=== PATIENT | female | born 1965 | race Caucasian/White ===

== ENCOUNTER 2018-10-31 12:09 | Emergency (ER) | payer MEDICAID ==
[~2018-10-31] VITALS: Ht 160 cm; Wt 90.0 kg
[~2018-10-31 12:09] MED LIST: ALBU18HF2 INH; LEVA15HF4 INH; LISI-600 PO; TOPI100T18 PO; TOPI200T PO
[2018-10-31] MEDS ORDERED: ipratropium/albuterol 3ml nebule NEB ONE (12:35)
[2018-10-31] MEDS ORDERED: methylPREDNISolone sod succ 125mg/2ml vial IV ONE (12:35)
[2018-10-31 12:42] LABS: BASOPHILS % (AUTO) 0.3 % (0-1); EOSINOPHILS # (AUTO) 0.4 X10'3 (0-0.9); EOSINOPHILS % (AUTO) 3.7 % (0-6); HEMATOCRIT 40.2 % (35.0-45.0); HEMOGLOBIN 13.7 g/dl (12.0-16.0); LYMPHOCYTES # (AUTO) 1.5 X10'3 (1.1-4.8); LYMPHOCYTES % (AUTO) 13.2 % (21-51); MEAN CORPUSCULAR HEMOGLOBIN 32.6 PG (27.0-31.0); MEAN CORPUSCULAR HGB CONC 34.1 % (33.0-36.5); MEAN CORPUSCULAR VOLUME 95.8 FL (78-98); MEAN PLATELET VOLUME 8.5 FL (7.4-10.4); MONOCYTES # (AUTO) 0.6 X10'3 (0-0.9); NEUTROPHILS % (AUTO) 77.8 % (42-75); PLATELET COUNT 200 X10'3 (140-440); RED CELL DISTRIBUTION WIDTH 13.4 % (11.5-14.5); WHITE BLOOD COUNT 11.6 X10'3 (4.5-11.0)
[2018-10-31 12:57] LABS: ALANINE AMINOTRANSFERASE 18 U/L (12-78); ALBUMIN/GLOBULIN RATIO 0.9 (1.1-1.5); ALKALINE PHOSPHATASE 78 IU/L (46-116); ANION GAP 12 (8-16); ASPARTATE AMINO TRANSFERASE 8 U/L (10-37); BILIRUBIN,TOTAL 0.5 MG/DL (0.1-1.0); BLOOD UREA NITROGEN 16 MG/DL (7-18); CALCIUM 9.3 MG/DL (8.5-10.1); CHLORIDE 105 MMOL/L (99-107); CREATININE 0.84 MG/DL (0.40-0.90); GLUCOSE 119 MG/DL (70-104); PARTIAL THROMBOPLASTIN TIME 28 SECONDS (22-32); POTASSIUM 4.5 MMOL/L (3.5-5.1); PROTHROMBIN TIME 10.3 SECONDS (9.0-12.0); SODIUM 138 MMOL/L (135-145); TOTAL CARBON DIOXIDE 21.5 MMOL/L (24-32); TOTAL PROTEIN 8.4 G/DL (6.4-8.2); eGFR 71 ML/MIN
[2018-10-31] MEDS ORDERED: LEVO750T21 PO (13:36)
[2018-10-31] MEDS ORDERED: METH4TAB81 PO (13:36)
[2018-10-31] MEDS ORDERED: lisinopril 10 MG tablet PO ONE (13:40)
[2018-10-31 13:55] VITALS: BP 157/98
== END 2018-10-31 13:52 | disposition home or self-care (01) ==
LOC: ER 12:10
DX: J44.1 Chronic obstructive pulmonary disease with (acute) exacerbation (principal); F17.218 Nicotine dependence, cigarettes, with other nicotine-induced disorders; I10 Essential (primary) hypertension; I25.2 Old myocardial infarction; Z86.19 Personal history of other infectious and parasitic diseases; Z86.69 Personal history of other diseases of the nervous system and sense organs; G89.29 Other chronic pain; Z98.890 Other specified postprocedural states; Z88.0 Allergy status to penicillin; Z88.5 Allergy status to narcotic agent; Z79.899 Other long term (current) drug therapy
CPT/HCPCS: 36415; 71045; 80053; 84484; 85025; 85610; 85730; 87040; 93005; 94640; 94760; 96374; 99284; J2930

== ENCOUNTER 2022-03-20 08:04 | Inpatient (IN) | payer MEDICAID ==
[~2022-03-20] VITALS: Ht 160 cm; Wt 70.9 kg
[~2022-03-20 08:04] MED LIST changes: -LISI-600 PO; +LISI20TA28 PO; +METH4TAB81 PO; +TOP100T PO; -TOPI100T18 PO
[2022-03-20] MEDS ORDERED: metoclopramide 5 mg/ml inj IV ONE (08:15)
[2022-03-20] MEDS ORDERED: diphenhydrAMINE 50 mg/ml inj IV ONE (08:15)
[2022-03-20] MEDS ORDERED: normal saline 1000ML IV soln IVB ONE ×2 (08:15)
[2022-03-20] MEDS ORDERED: morphine 4 MG/ML inj SYRINge IV ONE (08:20)
[2022-03-20] MEDS ORDERED: methylPREDNISolone sod succ 125mg/2ml vial IV ONE (08:20)
[2022-03-20 08:43] LABS: BASOPHILS # (AUTO) 0.1 X10'3 (0-0.2); BASOPHILS % (AUTO) 1.1 % (0-1); EOSINOPHILS # (AUTO) 0.2 X10'3 (0-0.9); EOSINOPHILS % (AUTO) 1.9 % (0-6); HEMOGLOBIN 11.9 g/dl (12.0-16.0); LYMPHOCYTES # (AUTO) 0.8 X10'3 (1.1-4.8); LYMPHOCYTES % (AUTO) 9.7 % (21-51); MEAN CORPUSCULAR HEMOGLOBIN 29.3 PG (27.0-31.0); MEAN CORPUSCULAR VOLUME 88.7 FL (78-98); MEAN PLATELET VOLUME 8.6 FL (7.4-10.4); MONOCYTES # (AUTO) 0.7 X10'3 (0-0.9); MONOCYTES % (AUTO) 8.6 % (2-12); NEUTROPHILS # (AUTO) 6.2 X10'3 (1.8-7.7); NEUTROPHILS % (AUTO) 78.7 % (42-75); PLATELET COUNT 257 X10'3 (140-440); RED BLOOD COUNT 4.06 X10'6 (4.20-5.60); RED CELL DISTRIBUTION WIDTH 18.8 % (11.5-14.5); WHITE BLOOD COUNT 7.9 X10'3 (4.5-11.0)
[2022-03-20 08:50] LABS: ALANINE AMINOTRANSFERASE 31 U/L (12-78); ALBUMIN 2.7 G/DL (3.4-5.0); ALBUMIN/GLOBULIN RATIO 0.6 (1.1-1.5); ALKALINE PHOSPHATASE 532 IU/L (46-116); ANION GAP 9 (8-16); ASPARTATE AMINO TRANSFERASE 76 U/L (10-37); BILIRUBIN,TOTAL 0.9 MG/DL (0.1-1.0); BLOOD UREA NITROGEN 11 MG/DL (7-18); BUN/CREATININE RATIO 13.1 (6.6-38.0); CALCIUM 8.4 MG/DL (8.5-10.1); CHLORIDE 107 MMOL/L (99-107); CREATININE 0.84 MG/DL (0.40-0.90); GLUCOSE 147 MG/DL (70-104); LIPASE 140 U/L (73-393); POTASSIUM 3.5 MMOL/L (3.5-5.1); SODIUM 142 MMOL/L (135-145); TOTAL CARBON DIOXIDE 26.3 MMOL/L (24-32); TOTAL PROTEIN 7.2 G/DL (6.4-8.2); eGFR 70 ML/MIN
[2022-03-20 09:16] LABS: CLARITY,URINE SLIGHTLY CLOUDY (Clear); COLOR,URINE YELLOW (Yellow); GLUCOSE, URINE NEGATIVE (Neg); KETONES,URINE NEGATIVE (Neg); LEUKOCYTE ESTERASE ,URINE NEGATIVE (Neg); NITRITES, URINE NEGATIVE (Neg); OCCULT BLOOD,URINE NEGATIVE (Neg); PROTEIN,URINE TRACE mg/dl (Neg)
[2022-03-20 09:22] LABS: URINE HCG NEGATIVE (NEG)
[2022-03-20 09:24] LABS: UA COLLECTION TYPE STRAIGHT CATH
[2022-03-20 09:25] LABS: MUCUS STRANDS MANY /LPF (Neg); SQUAMOUS EPITHELIAL CELL,UR MANY /LPF (FEW)
[2022-03-20 09:26] LABS: BACTERIA,URINE FEW /HPF (Neg)
[2022-03-20 09:27] LABS: TRANSITIONAL EPI CELLS,URINE FEW /HPF; WBC,URINE 0-4 /HPF (0-4)
--- NOTE | 2022-03-20 10:04 | NUR ---
US TECH AT BEDSIDE AT THIS TIME. PAT GIVEN ANOTHER PILLOW PER REQUEST FOR COMFORT.
[2022-03-20] MEDS ORDERED: levoFLOXACIN-Levaquin 500mg/D5 100 ML IV ONE (11:00)
[2022-03-20] MEDS ORDERED: HYDROcodone/acetaminophen 5mg/325mg tablet PO PRN (12:15)
[2022-03-20] MEDS ORDERED: magnesium hydroxide 30ml (MOM) UD suspension PO PRN (12:15)
[2022-03-20] MEDS ORDERED: magnesium 4gm in 100ml NS 100 ML IV PRN (12:15)
[2022-03-20] MEDS ORDERED: POTASSIUM BICARB 20meq eff tab 20 MEQ TABLET.EFF PO PRN ×2 (12:15)
[2022-03-20] MEDS ORDERED: potassium CL 10mEq/100ml bag 100 ML IV PRN (12:15)
[2022-03-20] MEDS ORDERED: magnesium 2GM in 50ml NS 50 ML IV PRN (12:15)
[2022-03-20] MEDS ORDERED: acetaminophen 325mg tablet PO PRN ×2 (12:15)
[2022-03-20] MEDS ORDERED: PERFLUTREN PROTEIN-A MICROSPHR (Optison) 0.22 MG/ML 3ML VIAL IV ONE (12:15)
[2022-03-20] MEDS ORDERED: ipratropium/albuterol 3ml nebule NEB PRN (12:15)
[2022-03-20] MEDS ORDERED: ondansetron 4mg rapidly disintigrating tab PO PRN (12:15)
[2022-03-20] MEDS ORDERED: magnesium Cl slow-release 64mg tablet PO PRN (12:15)
[2022-03-20] MEDS ORDERED: mag hydrox/Alum hydrox/simeth 30ml oral suspension PO PRN (12:15)
[2022-03-20] MEDS: cefTRIAXone 1g/NS 100ml IVPB 100 ML IV SCH (12:51)
[2022-03-20] MEDS: normal saline 1000ml 1,000 ML IV SCH (12:54)
[2022-03-20] MEDS ORDERED: NO HOME MEDS (13:18)
[2022-03-20 13:44] LABS: % IRON SATURATION 24 % (11-46); IRON 37 UG/DL (49-151); TOTAL IRON BINDING CAPACITY 155 UG/DL (259-388)
[2022-03-20 13:54] LABS: MAGNESIUM 1.7 MG/DL (1.5-2.4)
[2022-03-20 14:09] LABS: HIV ANTIBODY 1&2 RAPID NON-REACTIVE (Neg)
[2022-03-20] MEDS: methylPREDNISolone sod succ 125mg/2ml vial IV SCH ×2 (14:20→19:48)
[2022-03-20] MEDS ORDERED: hydrALAZINE 20mg/ml inj. IV PRN (14:35)
[2022-03-20] MEDS: ipratropium/albuterol 3ml nebule NEB SCH ×3 (14:38→23:06)
[2022-03-20] MEDS ORDERED: amLODIPine 5mg tablet PO ONE (14:40)
[2022-03-20] MEDS ORDERED: nicotine 14mg patch - 24hr TD ONE (14:40)
[2022-03-20 14:57] VITALS: BP 155/58
[2022-03-20 15:36] VITALS: BP 161/88
[2022-03-20 15:44] LABS: APTT 26 SECONDS (22-32)
[2022-03-20 15:59] LABS: GLUCOSE,BODY FLUID 144 MG/DL; LDH,BODY FLUID 38 U/L
[2022-03-20 16:10] VITALS: BP 168/86
[2022-03-20 16:56] LABS: BFAPPEAR CLOUDY; LYMPHOCYTES,BODY FLUID 50 %; MONOCYTES,BODY FLUID 30 %; NEUTROPHILS,BODY FLUID 20 %
[2022-03-20 16:57] LABS: BFCOLOR AMBER; BFVOLUME 55 ML
[2022-03-20 16:58] LABS: BF MESOTHELIAL CELLS MODERATE; BF RBC COUNT 5525 /CU MM; BF WBC COUNT 210 /CU MM (0-1000)
[2022-03-20 17:26] LABS: TOTAL PROTEIN,BODY FLUID < 2.0 G/DL
[2022-03-20] MEDS: HYDROcodone/acetaminophen 10/325mg tab PO PRN (17:51)
[2022-03-20 18:00] VITALS: BP 112/84
--- NOTE | 2022-03-20 18:27 | NUR ---
Problems reprioritized. Patient report given, questions answered & plan of care reviewed with noc RN.
[2022-03-20] MEDS: K and/or MAG REPLACEMENT MC SCH (19:44)
[2022-03-20] MEDS: docusate sod 100mg capsule PO SCH (19:44)
[2022-03-20] MEDS ORDERED: temazepam 15mg capsule PO PRN (21:00)
[2022-03-20] MEDS: diatr meglu/diatrizoate 30ml oral sol.-(3 dose) bottle PO SCH (21:03)
[2022-03-20 22:00] VITALS: BP 154/78
[2022-03-21] MEDS: methylPREDNISolone sod succ 125mg/2ml vial IV SCH ×4 (00:09→19:35)
[2022-03-21] MEDS: HYDROcodone/acetaminophen 10/325mg tab PO PRN ×5 (00:10→19:36)
[2022-03-21] MEDS: ipratropium/albuterol 3ml nebule NEB SCH ×6 (02:53→23:39)
[2022-03-21 06:00] VITALS: BP 132/113
--- NOTE | 2022-03-21 06:42 | NUR ---
Patient in room ORTHO 4018. I have received report from JERRELL Nielson and had the opportunity to ask questions and assume patient care.
[2022-03-21 07:30] VITALS: BP 154/77
[2022-03-21 07:33] LABS: BASOPHILS % (AUTO) 0.3 % (0-1); EOSINOPHILS % (AUTO) 0 % (0-6); HEMATOCRIT 34.9 % (35.0-45.0); HEMOGLOBIN 11.4 g/dl (12.0-16.0); LYMPHOCYTES # (AUTO) 0.5 X10'3 (1.1-4.8); LYMPHOCYTES % (AUTO) 4.5 % (21-51); MEAN CORPUSCULAR HEMOGLOBIN 29.1 PG (27.0-31.0); MEAN CORPUSCULAR HGB CONC 32.5 g/dL (33.0-36.5); MEAN CORPUSCULAR VOLUME 89.4 FL (78-98); MEAN PLATELET VOLUME 8.9 FL (7.4-10.4); MONOCYTES # (AUTO) 0.2 X10'3 (0-0.9); MONOCYTES % (AUTO) 1.9 % (2-12); NEUTROPHILS # (AUTO) 10.9 X10'3 (1.8-7.7); NEUTROPHILS % (AUTO) 93.3 % (42-75); PLATELET COUNT 244 X10'3 (140-440); RED BLOOD COUNT 3.91 X10'6 (4.20-5.60); RED CELL DISTRIBUTION WIDTH 19.2 % (11.5-14.5); WHITE BLOOD COUNT 11.7 X10'3 (4.5-11.0)
[2022-03-21] MEDS: cefTRIAXone 1g/NS 100ml IVPB 100 ML IV SCH (07:41)
[2022-03-21] MEDS: docusate sod 100mg capsule PO SCH ×2 (07:41→19:35)
[2022-03-21] MEDS: nicotine 14mg patch - 24hr TD SCH (07:42)
[2022-03-21] MEDS: diatr meglu/diatrizoate 30ml oral sol.-(3 dose) bottle PO SCH ×2 (07:42→10:43)
[2022-03-21] MEDS: amLODIPine 5mg tablet PO SCH (07:42)
[2022-03-21 07:45] LABS: APTT 27 SECONDS (22-32)
[2022-03-21 07:50] LABS: ALANINE AMINOTRANSFERASE 32 U/L (12-78); ALBUMIN 2.7 G/DL (3.4-5.0); ALBUMIN/GLOBULIN RATIO 0.6 (1.1-1.5); ALKALINE PHOSPHATASE 467 IU/L (46-116); ANION GAP 11 (8-16); ASPARTATE AMINO TRANSFERASE 66 U/L (10-37); BILIRUBIN,TOTAL 0.7 MG/DL (0.1-1.0); BLOOD UREA NITROGEN 18 MG/DL (7-18); BUN/CREATININE RATIO 22.5 (6.6-38.0); CALCIUM 8.5 MG/DL (8.5-10.1); CHLORIDE 105 MMOL/L (99-107); GLUCOSE 185 MG/DL (70-104); POTASSIUM 4.1 MMOL/L (3.5-5.1); SODIUM 140 MMOL/L (135-145); TOTAL PROTEIN 7.3 G/DL (6.4-8.2); eGFR 74 ML/MIN
[2022-03-21] MEDS: K and/or MAG REPLACEMENT MC SCH ×2 (08:00→19:36)
[2022-03-21] MEDS: normal saline 1000ml 1,000 ML IV SCH (09:44)
[2022-03-21 10:00] VITALS: BP 158/78
[2022-03-21] MEDS ORDERED: iohexol 300mg/ml 100ml inj. ONE (10:44)
[2022-03-21 14:00] VITALS: BP 143/87
[2022-03-21 18:00] VITALS: BP 142/72
--- NOTE | 2022-03-21 18:39 | NUR ---
Problems reprioritized. Patient report given, questions answered & plan of care reviewed with JERRELL Nielson.
[2022-03-21 22:00] VITALS: BP 156/82
[2022-03-22] MEDS: methylPREDNISolone sod succ 125mg/2ml vial IV SCH ×4 (02:09→23:28)
[2022-03-22] MEDS: ipratropium/albuterol 3ml nebule NEB SCH ×6 (03:04→23:29)
[2022-03-22] MEDS: HYDROcodone/acetaminophen 10/325mg tab PO PRN ×4 (03:08→20:07)
[2022-03-22 05:00] VITALS: BP 154/66
[2022-03-22 06:14] LABS: BASOPHILS # (AUTO) 0.2 X10'3 (0-0.2); BASOPHILS % (AUTO) 1.1 % (0-1); EOSINOPHILS % (AUTO) 0 % (0-6); HEMATOCRIT 33.8 % (35.0-45.0); HEMOGLOBIN 11.1 g/dl (12.0-16.0); LYMPHOCYTES # (AUTO) 0.4 X10'3 (1.1-4.8); LYMPHOCYTES % (AUTO) 2.8 % (21-51); MEAN CORPUSCULAR HEMOGLOBIN 29.8 PG (27.0-31.0); MEAN CORPUSCULAR HGB CONC 32.8 g/dL (33.0-36.5); MEAN PLATELET VOLUME 9.3 FL (7.4-10.4); MONOCYTES # (AUTO) 0.4 X10'3 (0-0.9); NEUTROPHILS # (AUTO) 13.8 X10'3 (1.8-7.7); NEUTROPHILS % (AUTO) 93.1 % (42-75); PLATELET COUNT 270 X10'3 (140-440); RED BLOOD COUNT 3.71 X10'6 (4.20-5.60); RED CELL DISTRIBUTION WIDTH 19.4 % (11.5-14.5); WHITE BLOOD COUNT 14.8 X10'3 (4.5-11.0)
[2022-03-22 06:26] LABS: APTT 25 SECONDS (22-32)
--- NOTE | 2022-03-22 06:34 | NUR ---
Patient in room ORTHO 4018. I have received report from JERRELL Nielson and had the opportunity to ask questions and assume patient care.
[2022-03-22 06:41] LABS: ALANINE AMINOTRANSFERASE 52 U/L (12-78); ALBUMIN 2.7 G/DL (3.4-5.0); ALBUMIN/GLOBULIN RATIO 0.6 (1.1-1.5); ALKALINE PHOSPHATASE 448 IU/L (46-116); ANION GAP 10 (8-16); ASPARTATE AMINO TRANSFERASE 202 U/L (10-37); BILIRUBIN,TOTAL 0.6 MG/DL (0.1-1.0); BLOOD UREA NITROGEN 23 MG/DL (7-18); BUN/CREATININE RATIO 29.5 (6.6-38.0); CALCIUM 8.7 MG/DL (8.5-10.1); CHLORIDE 104 MMOL/L (99-107); CREATININE 0.78 MG/DL (0.40-0.90); GLUCOSE 187 MG/DL (70-104); MAGNESIUM 2.3 MG/DL (1.5-2.4); POTASSIUM 4.6 MMOL/L (3.5-5.1); SODIUM 137 MMOL/L (135-145); TOTAL PROTEIN 7.1 G/DL (6.4-8.2); eGFR 76 ML/MIN
[2022-03-22] MEDS: docusate sod 100mg capsule PO SCH ×2 (07:57→20:06)
[2022-03-22] MEDS: nicotine 14mg patch - 24hr TD SCH (07:57)
[2022-03-22] MEDS: amLODIPine 5mg tablet PO SCH (07:57)
[2022-03-22] MEDS: cefTRIAXone 1g/NS 100ml IVPB 100 ML IV SCH (07:57)
[2022-03-22] MEDS: K and/or MAG REPLACEMENT MC SCH ×2 (08:00→20:00)
[2022-03-22 10:00] VITALS: BP 142/76
[2022-03-22] MEDS ORDERED: iohexol 300mg/ml 100ml inj. ONE (10:08)
[2022-03-22] MEDS: normal saline 1000ml 1,000 ML IV SCH (12:15)
[2022-03-22 12:30] VITALS: BP 183/85
--- NOTE | 2022-03-22 12:30 | NUR ---
Pt reports severe SOB and chest tightness. VS taken and respiratory paged for treatment. Dr Fine notified and EKG taken. Orders received for chest xray and PO/IV ativan.
[2022-03-22 13:06] LABS: HBSAG SCREEN Negative (Negative); HEP A AB, IGM Negative (Negative)
[2022-03-22] MEDS: LORazepam 2 mg/ml vial IV PRN (13:13)
[2022-03-22 14:00] VITALS: BP 163/81
[2022-03-22 18:00] VITALS: BP 146/80
--- NOTE | 2022-03-22 18:20 | NUR ---
Problems reprioritized. Patient report given, questions answered & plan of care reviewed with Nisreen ALLAN.
[2022-03-22] MEDS: heparin, porcine 5000 units/ml vial SQ SCH (20:07)
[2022-03-22 22:00] VITALS: BP 156/75
[2022-03-23] VITALS (7 sets, daily range): BP systolic 154–173; BP diastolic 76–94
[2022-03-23] MEDS: HYDROcodone/acetaminophen 10/325mg tab PO PRN ×5 (01:37→23:43)
[2022-03-23] MEDS: ipratropium/albuterol 3ml nebule NEB SCH ×6 (02:56→23:33)
[2022-03-23 05:37] LABS: BASOPHILS % (AUTO) 0.1 % (0-1); EOSINOPHILS % (AUTO) 0 % (0-6); HEMOGLOBIN 10.5 g/dl (12.0-16.0); LYMPHOCYTES # (AUTO) 0.5 X10'3 (1.1-4.8); LYMPHOCYTES % (AUTO) 3.5 % (21-51); MEAN CORPUSCULAR HEMOGLOBIN 29.6 PG (27.0-31.0); MEAN CORPUSCULAR HGB CONC 32.9 g/dL (33.0-36.5); MEAN PLATELET VOLUME 8.8 FL (7.4-10.4); MONOCYTES # (AUTO) 0.6 X10'3 (0-0.9); MONOCYTES % (AUTO) 4.2 % (2-12); NEUTROPHILS % (AUTO) 92.2 % (42-75); PLATELET COUNT 264 X10'3 (140-440); RED BLOOD COUNT 3.56 X10'6 (4.20-5.60); RED CELL DISTRIBUTION WIDTH 18.9 % (11.5-14.5)
[2022-03-23 05:42] LABS: APTT 24 SECONDS (22-32)
[2022-03-23 05:58] LABS: ALANINE AMINOTRANSFERASE 70 U/L (12-78); ALBUMIN 2.7 G/DL (3.4-5.0); ALBUMIN/GLOBULIN RATIO 0.6 (1.1-1.5); ALKALINE PHOSPHATASE 391 IU/L (46-116); ANION GAP 8 (8-16); ASPARTATE AMINO TRANSFERASE 188 U/L (10-37); BILIRUBIN,TOTAL 0.7 MG/DL (0.1-1.0); BLOOD UREA NITROGEN 26 MG/DL (7-18); BUN/CREATININE RATIO 33.3 (6.6-38.0); CALCIUM 8.4 MG/DL (8.5-10.1); CHLORIDE 103 MMOL/L (99-107); CREATININE 0.78 MG/DL (0.40-0.90); GLUCOSE 218 MG/DL (70-104); POTASSIUM 4.5 MMOL/L (3.5-5.1); SODIUM 135 MMOL/L (135-145); eGFR 76 ML/MIN
--- NOTE | 2022-03-23 06:10 | NUR ---
received report from merritt nettles
[2022-03-23] MEDS: LORazepam 0.5 MG tablet PO PRN ×3 (06:56→23:12)
[2022-03-23] MEDS: docusate sod 100mg capsule PO SCH ×2 (06:57→19:08)
[2022-03-23] MEDS: amLODIPine 5mg tablet PO SCH (06:57)
[2022-03-23] MEDS: nicotine 14mg patch - 24hr TD SCH (06:59)
[2022-03-23] MEDS: heparin, porcine 5000 units/ml vial SQ SCH (07:01)
[2022-03-23] MEDS: methylPREDNISolone sod succ 125mg/2ml vial IV SCH ×3 (07:03→23:42)
[2022-03-23] MEDS: cefTRIAXone 1g/NS 100ml IVPB 100 ML IV SCH (07:05)
[2022-03-23 07:36] LABS: ANISOCYTOSIS 2+; HYPOCHROMASIA 1+; PLATELET ESTIMATE NORMAL; POLYCHROMASIA FEW
[2022-03-23] MEDS: K and/or MAG REPLACEMENT MC SCH ×2 (08:00→19:26)
--- NOTE | 2022-03-23 18:20 | NUR ---
GAVE REPORT TO JERRELL WILSON
--- NOTE | 2022-03-23 18:40 | NUR ---
Patient in room ORTHO 4018. I have received report from JERRELL Castellano and had the opportunity to ask questions and assume patient care. pt talking on phone, asking for "anxiety medication" Addendum: 03/23/22 at 1855 by Layla Anguiano RN Amended: Links added.
[2022-03-23] MEDS: LORazepam 2 mg/ml vial IV PRN (19:08)
[2022-03-23] MEDS: normal saline 1000ml 1,000 ML IV SCH (23:42)
[2022-03-24] VITALS (26 sets, daily range): BP systolic 119–167; BP diastolic 55–86
[2022-03-24] MEDS: ipratropium/albuterol 3ml nebule NEB SCH ×5 (03:53→19:10)
[2022-03-24] MEDS: HYDROcodone/acetaminophen 10/325mg tab PO PRN ×4 (05:37→23:47)
[2022-03-24] MEDS: LORazepam 0.5 MG tablet PO PRN ×3 (05:37→19:20)
--- NOTE | 2022-03-24 05:40 | NUR ---
c/o pain, bp elevated, pt also c/o anxiety, norco and ativan given and will re check b/p and given meds as ordered. Addendum: 03/24/22 at 0546 by Layla Anguiano RN Amended: Links added.
[2022-03-24 06:01] LABS: BASOPHILS % (AUTO) 0.2 % (0-1); EOSINOPHILS % (AUTO) 0 % (0-6); HEMATOCRIT 32.7 % (35.0-45.0); HEMOGLOBIN 10.9 g/dl (12.0-16.0); LYMPHOCYTES # (AUTO) 0.4 X10'3 (1.1-4.8); LYMPHOCYTES % (AUTO) 3.6 % (21-51); MEAN CORPUSCULAR HEMOGLOBIN 29.9 PG (27.0-31.0); MEAN CORPUSCULAR HGB CONC 33.4 g/dL (33.0-36.5); MEAN CORPUSCULAR VOLUME 89.6 FL (78-98); MEAN PLATELET VOLUME 8.6 FL (7.4-10.4); MONOCYTES # (AUTO) 0.6 X10'3 (0-0.9); MONOCYTES % (AUTO) 5.9 % (2-12); NEUTROPHILS # (AUTO) 9.7 X10'3 (1.8-7.7); NEUTROPHILS % (AUTO) 90.3 % (42-75); PLATELET COUNT 249 X10'3 (140-440); RED BLOOD COUNT 3.65 X10'6 (4.20-5.60); RED CELL DISTRIBUTION WIDTH 18.9 % (11.5-14.5); WHITE BLOOD COUNT 10.8 X10'3 (4.5-11.0)
--- NOTE | 2022-03-24 06:08 | NUR ---
Problems reprioritized. Patient report given, questions answered & plan of care reviewed with JERRELL Mena. Addendum: 03/24/22 at 0609 by Layla Anguiano RN Amended: Links added.
[2022-03-24 06:19] LABS: ALANINE AMINOTRANSFERASE 85 U/L (12-78); ALBUMIN 2.9 G/DL (3.4-5.0); ALBUMIN/GLOBULIN RATIO 0.7 (1.1-1.5); ALKALINE PHOSPHATASE 379 IU/L (46-116); ANION GAP 7 (8-16); ASPARTATE AMINO TRANSFERASE 131 U/L (10-37); BILIRUBIN,TOTAL 0.8 MG/DL (0.1-1.0); BLOOD UREA NITROGEN 24 MG/DL (7-18); BUN/CREATININE RATIO 30.8 (6.6-38.0); CALCIUM 8.7 MG/DL (8.5-10.1); CHLORIDE 103 MMOL/L (99-107); CREATININE 0.78 MG/DL (0.40-0.90); GLUCOSE 192 MG/DL (70-104); POTASSIUM 4.8 MMOL/L (3.5-5.1); SODIUM 134 MMOL/L (135-145); TOTAL CARBON DIOXIDE 24.3 MMOL/L (24-32); eGFR 76 ML/MIN
[2022-03-24] MEDS: methylPREDNISolone sod succ 125mg/2ml vial IV SCH (07:13)
[2022-03-24] MEDS: docusate sod 100mg capsule PO SCH ×2 (07:13→19:21)
[2022-03-24] MEDS: nicotine 14mg patch - 24hr TD SCH (07:14)
[2022-03-24] MEDS: amLODIPine 5mg tablet PO SCH ×2 (07:15→09:49)
[2022-03-24] MEDS: cefTRIAXone 1g/NS 100ml IVPB 100 ML IV SCH (07:17)
[2022-03-24] MEDS: K and/or MAG REPLACEMENT MC SCH ×2 (08:00→20:00)
[2022-03-24] MEDS: predniSONE 20 mg tablet PO SCH ×2 (08:30→14:51)
[2022-03-24 09:59] LABS: APTT 24 SECONDS (22-32)
[2022-03-24 11:48] LABS: CARCINOEMBRYONIC ANTIGEN 1.5 ng/mL (0.0-4.7)
[2022-03-24] MEDS ORDERED: fentaNYL/PF 50MCG/1 ML 2ML syringe ONE ×2 (12:20→13:32)
[2022-03-24] MEDS ORDERED: midazolam 1 mg/ML 2ml injection ONE ×2 (12:20→13:08)
[2022-03-24] MEDS ORDERED: LIDOcaine 1%/PF 5ML 10 MG/ML VIAL ONE (12:20)
[2022-03-24] MEDS ORDERED: gelatin sponge, absorbable (Gelfoam 12-7MM) sponge TP ONE (12:21)
--- NOTE | 2022-03-24 12:28 | NUR ---
Patient not in her room at this time, she was transported to the IR department for liver biopsy
[2022-03-24] MEDS ORDERED: LIDOCAINE 1% w/preservative (10 MG/ML) inj. 10mL VIAL ONE (13:02)
--- NOTE | 2022-03-24 14:13 | NUR ---
Patient just got back to her room s/p liver biopsy. Per IR nurse, patient also ended up needing paracentesis so they had to do it as well at IR department to relieve the pressure from her abdomen. Per IR nurse, patient need to lay on her abdomen for at least 2 hours (which is 16:00). Daughter present at bedside when patient came back to her room. Instructed patient to call me right away if she notice any bleeding from the puncture site or notice it's wet.
--- NOTE | 2022-03-24 14:25 | NUR ---
Paged Dr. Fine O/N Trina RN ext [phone] RE: Bridget Collado. Patient came back to her room s/p liver biopsy, they also did paracentesis. Patient and daughter like to speak to you when you get a chance, they have some questions
[2022-03-24] MEDS: ondansetron/PF 4mg/2ml inj IV PRN (16:30)
--- NOTE | 2022-03-24 18:30 | NUR ---
Patient in room ORTHO 4018. I have received report from JERRELL Mena and had the opportunity to ask questions and assume patient care. Addendum: 03/24/22 at 1935 by Layla Anguiano RN Amended: Links added.
--- NOTE | 2022-03-24 19:32 | NUR ---
assessment done, abd distended, but softer, c/o pain throbbing, x2 bandaides ruq and x1 bandaide left upper quad cd&i, some faint bruising around sites. norco and ativan given pt tearfull re diagnosis. states wants to get some sleep. allowed pt to verbalize feelings, now calm and falling asleep, warm blanket given. Addendum: 03/24/22 at 1934 by Layla Anguiano RN Amended: Links added.
[2022-03-25] MEDS: ipratropium/albuterol 3ml nebule NEB SCH ×7 (00:02→22:53)
--- NOTE | 2022-03-25 00:02 | NUR ---
SITTING UP IN BED C/O PAIN, ANXIETY, STATES UNABLE TO SLEEP. MEDS GIVEN, RT IN ROOM FOR BREATHING TREATMENT. Addendum: 03/25/22 at 0003 by Layla Anguiano RN Amended: Links added.
[2022-03-25] MEDS: LORazepam 0.5 MG tablet PO PRN ×3 (03:33→20:50)
[2022-03-25] MEDS: HYDROcodone/acetaminophen 10/325mg tab PO PRN (03:36)
[2022-03-25] MEDS: ondansetron/PF 4mg/2ml inj IV PRN ×2 (05:18→22:58)
[2022-03-25 06:00] VITALS: BP 159/72
--- NOTE | 2022-03-25 06:09 | NUR ---
Problems reprioritized. Patient report given, questions answered & plan of care reviewed with JERRELL HOUSE. Addendum: 03/25/22 at 0609 by Layla Anguiano RN Amended: Links added.
[2022-03-25 06:26] LABS: BASOPHILS % (AUTO) 0.2 % (0-1); EOSINOPHILS % (AUTO) 0.1 % (0-6); HEMOGLOBIN 10.8 g/dl (12.0-16.0); LYMPHOCYTES # (AUTO) 0.8 X10'3 (1.1-4.8); LYMPHOCYTES % (AUTO) 7.4 % (21-51); MEAN CORPUSCULAR HEMOGLOBIN 29.5 PG (27.0-31.0); MEAN CORPUSCULAR HGB CONC 32.7 g/dL (33.0-36.5); MEAN CORPUSCULAR VOLUME 90.5 FL (78-98); MEAN PLATELET VOLUME 8.4 FL (7.4-10.4); MONOCYTES # (AUTO) 1.2 X10'3 (0-0.9); MONOCYTES % (AUTO) 10.9 % (2-12); NEUTROPHILS # (AUTO) 9.1 X10'3 (1.8-7.7); NEUTROPHILS % (AUTO) 81.4 % (42-75); PLATELET COUNT 276 X10'3 (140-440); RED BLOOD COUNT 3.64 X10'6 (4.20-5.60); RED CELL DISTRIBUTION WIDTH 19.4 % (11.5-14.5); WHITE BLOOD COUNT 11.2 X10'3 (4.5-11.0)
[2022-03-25 06:57] LABS: ALANINE AMINOTRANSFERASE 90 U/L (12-78); ALBUMIN 2.7 G/DL (3.4-5.0); ALBUMIN/GLOBULIN RATIO 0.7 (1.1-1.5); ALKALINE PHOSPHATASE 356 IU/L (46-116); ANION GAP 9 (8-16); ASPARTATE AMINO TRANSFERASE 126 U/L (10-37); BILIRUBIN,TOTAL 0.8 MG/DL (0.1-1.0); BLOOD UREA NITROGEN 24 MG/DL (7-18); CALCIUM 8.5 MG/DL (8.5-10.1); CHLORIDE 102 MMOL/L (99-107); CREATININE 0.96 MG/DL (0.40-0.90); GLUCOSE 154 MG/DL (70-104); MAGNESIUM 2.2 MG/DL (1.5-2.4); POTASSIUM 4.7 MMOL/L (3.5-5.1); SODIUM 137 MMOL/L (135-145); TOTAL CARBON DIOXIDE 25.6 MMOL/L (24-32); TOTAL PROTEIN 6.6 G/DL (6.4-8.2); eGFR 60 ML/MIN
[2022-03-25] MEDS: K and/or MAG REPLACEMENT MC SCH ×2 (08:00→20:00)
[2022-03-25] MEDS: nicotine 14mg patch - 24hr TD SCH (08:28)
[2022-03-25] MEDS: cefTRIAXone 1g/NS 100ml IVPB 100 ML IV SCH (08:28)
[2022-03-25] MEDS: amLODIPine 5mg tablet PO SCH (08:29)
[2022-03-25] MEDS: docusate sod 100mg capsule PO SCH ×2 (08:29→20:00)
[2022-03-25] MEDS: predniSONE 20 mg tablet PO SCH (08:29)
--- NOTE | 2022-03-25 08:39 | NUR ---
As I was looking for the old Nicotine patch because I was giving a new one. Patient states "it's not there anymore, my daughter took it off!" I asked patient why she took it off, she said to me "my daughter and I went outside yesterday to smoke!". I told patient they cannot do that, it's a non-smoking facility and that she (the patient) not allowed to leave the unit. She told me the security saw them yesterday and they were told it's fine. I strongly discouraged patient to do it as leaving the hospital building could mean discharge against medical advice. Yesterday, patient and daughter were both emotional after the doctor has told patient that she has cancer. Daughter asked me yesterday to have her mom used a wheelchair to get some fresh air and that patient need a change in scenery to reduce anxiety as Ativan was not due yet at that time. I instructed the daughter yesterday they can just stay around this building (third floor) and that there was window by the end of hallway to look at the outside view. I reminded patient about not doing this anymore as this was not a safe thing to do as anything could have happened and no one would know. She said to "No, I won't do it anymore. I know I can't smoke!"
--- NOTE | 2022-03-25 09:50 | NUR ---
Initial: Pt admit for COPD exacerbation with possible portal vein thrombosis, liver cirrhosis, and acute respiratory failure with hypoxemia. Pt found to have probable liver cancer with metastasis per MD note. Pt s/p paracentesis 03/20 with 3800 mL fluid removed per report; wt likely to fluctuate d/t changes in fluid status. Pt currently on a regular diet and eating well with mostly 100% PO intake meeting estimated nutrient needs. LBM 03/23, receiving routine bowel care. No nutrition intervention implemented at this time. Will continue to follow. Recommendations: 1) Continue regular diet 2) Monitor need for additional protein for satiety 3) Routine bowel care 4) Scaled weight this admit; subsequent weekly scaled weights Addendum: 03/25/22 at [address] Amended: Links added.
[2022-03-25 10:00] VITALS: BP 169/83
[2022-03-25] MEDS ORDERED: HYDROmorphone inj. 0.5 MG/0.5 ML DISP.SYRIN IV PRN (10:45)
[2022-03-25] MEDS: HYDROmorphone 1 mg/ml syringe IV PRN ×3 (11:20→23:17)
--- NOTE | 2022-03-25 15:26 | NUR ---
Paged Dr. Fine O/N Trina RN ext [phone] RE: Bridget Collado. Patient's daughter really wants to talk to you about the patient condition and prognosis. Please call her at [phone].
--- NOTE | 2022-03-25 15:48 | NUR ---
Paged Dr. Fine O/N Trina RN ext [phone] RE: Bridget Collado. Patient asking for pain pill. She is no longer on [place]. She is on Dilaudid, she also wants something PO pain medicine. I only have Tylenol for pain
[2022-03-25 18:00] VITALS: BP 157/74
--- NOTE | 2022-03-25 18:30 | NUR ---
Patient in room ORTHO 4018. I have received report from LACY ALLAN and had the opportunity to ask questions and assume patient care.
[2022-03-25] MEDS: oxyCODONE IR 5mg (immed. release) tablet PO PRN (19:07)
[2022-03-25 22:00] VITALS: BP_SYST 138; BP_SYST 142; BP_DIAS 76; BP_DIAS 77
[2022-03-26] MEDS: ipratropium/albuterol 3ml nebule NEB SCH ×3 (03:28→10:58)
[2022-03-26] MEDS: HYDROmorphone 1 mg/ml syringe IV PRN ×3 (03:47→13:16)
[2022-03-26] MEDS: ondansetron/PF 4mg/2ml inj IV PRN (05:37)
[2022-03-26 06:00] VITALS: BP 160/81
--- NOTE | 2022-03-26 06:18 | NUR ---
Problems reprioritized. Patient report given, questions answered & plan of care reviewed with RAOUL ALLAN.
[2022-03-26] MEDS: K and/or MAG REPLACEMENT MC SCH (07:42)
[2022-03-26] MEDS: docusate sod 100mg capsule PO SCH (08:13)
[2022-03-26] MEDS: cefTRIAXone 1g/NS 100ml IVPB 100 ML IV SCH (08:13)
[2022-03-26] MEDS: amLODIPine 5mg tablet PO SCH (08:13)
[2022-03-26] MEDS: LORazepam 0.5 MG tablet PO PRN (08:14)
[2022-03-26] MEDS: predniSONE 20 mg tablet PO SCH (08:14)
[2022-03-26] MEDS: nicotine 14mg patch - 24hr TD SCH (08:15)
[2022-03-26 10:14] VITALS: BP 151/88
[2022-03-26] MEDS: oxyCODONE IR 5mg (immed. release) tablet PO PRN (11:25)
[2022-03-26] MEDS: normal saline 1000ml 1,000 ML IV SCH (12:15)
[2022-03-26] MEDS ORDERED: IPRA4AER IH (12:20)
[2022-03-26] MEDS ORDERED: PRED20TA PO (12:20)
[2022-03-26] MEDS ORDERED: NOR5T PO (12:20)
[2022-03-26] MEDS ORDERED: METO-395 PO (12:20)
[2022-03-26] MEDS ORDERED: OXYC-658 PO (12:23)
--- NOTE | 2022-03-26 13:59 | NUR ---
Educated patient she is going to have to find a PCP through her insurance, we are currently trying to find an Oncologist. Patient is going to be discharged home with her daughter off [facility] in [place].
[2022-03-26] MEDS ORDERED: ONDA4TAB12 PO (15:01)
[2022-03-26] MEDS ORDERED: LORA-268 PO (15:01)
--- NOTE | 2022-03-26 15:07 | NUR ---
O2 Sat at rest on room air:_93__% If below 89%: Recovery O2 Sat at rest on _93__LPM:_0__%:___% via 0 (mask/nasal cannula, etc..) No further documentation is necessary. If O2 Sat did not drop below 89% on room air,ambulate patient on room air. O2 Sat while ambulating on room air:___% Recovery O2 Sat while ambulating on ___LPM:___% No further documentation is necessary. If patient does not drop below 89% while ambulating, he/she does not qualify for home O2.
[2022-04-30 14:09] LABS: HEPATITIS C ANTIBODY >11.0
== END 2022-03-26 16:35 | disposition home or self-care (01) | DRG 281 ==
LOC: ER 08:04 → ED HOLD 12:28 → ORTHO 4S 16:00
PROVIDERS: ADMIT Family Medicine; ATTEND Family Medicine
PROC: 0W9G3ZX Drainage of Peritoneal Cavity, Percutaneous Approach, Diagnostic (ICD-10-PCS; 2022-03-20)
PROC: BW241ZZ Computerized Tomography (CT Scan) of Chest and Abdomen using Low Osmolar Contrast (ICD-10-PCS; 2022-03-22)
PROC: 0FB03ZX Excision of Liver, Percutaneous Approach, Diagnostic (ICD-10-PCS; principal; 2022-03-24)
PROC: 0W9G3ZZ Drainage of Peritoneal Cavity, Percutaneous Approach (ICD-10-PCS; 2022-03-24)
DX: C22.0 Liver cell carcinoma (principal); J96.01 Acute respiratory failure with hypoxia; I81 Portal vein thrombosis; R64 Cachexia; R18.8 Other ascites; C78.89 Secondary malignant neoplasm of other digestive organs; C78.00 Secondary malignant neoplasm of unspecified lung; J44.1 Chronic obstructive pulmonary disease with (acute) exacerbation; K74.60 Unspecified cirrhosis of liver; F17.210 Nicotine dependence, cigarettes, uncomplicated; G40.909 Epilepsy, unspecified, not intractable, without status epilepticus; Z20.822 Contact with and (suspected) exposure to COVID-19; B19.20 Unspecified viral hepatitis C without hepatic coma; I10 Essential (primary) hypertension; G89.29 Other chronic pain; K80.20 Calculus of gallbladder without cholecystitis without obstruction; K82.8 Other specified diseases of gallbladder; I25.2 Old myocardial infarction; Z59.00 Homelessness unspecified; Z90.710 Acquired absence of both cervix and uterus; Z56.0 Unemployment, unspecified; Z88.0 Allergy status to penicillin; Z88.5 Allergy status to narcotic agent; Z68.27 Body mass index [BMI] 27.0-27.9, adult
CPT/HCPCS: 36415; 47000; 49083; 71045; 71260; 74170; 74176; 76700; 77012; 80053; 80074; 81001; 81025; 82103; 82378; 82945; 83540; 83550; 83605; 83615; 83690; 83735; 84132; 84145; 84157; 84443; 85008; 85025; 85610; 85730; 86301; 86304; 86703; 87040; 87081; 87635; 89051; 93005; 93306; 94640; 94760; 96361; 96365; 96375; 99152; 99153; 99285; G0378; J0696; J1170; J1200; J1644; J1956; J2060; J2250; J2270; J2405; J2765; J2930; J3010; J3490; J7030; J7512; Q9963; Q9967

== ENCOUNTER 2022-04-06 12:37 | Emergency (ER) | payer MEDICAID ==
[~2022-04-06] VITALS: Ht 160 cm; Wt 90.0 kg
[~2022-04-06 12:37] MED LIST changes: -ALBU18HF2 INH; +IPRA4AER IH; -LEVA15HF4 INH; -LISI20TA28 PO; +LORA-268 PO; -METH4TAB81 PO; +METO-395 PO; +NOR5T PO; +ONDA4TAB12 PO; +OXYC-658 PO; -TOP100T PO; -TOPI200T PO
[2022-04-06 12:46] VITALS: BP 114/74
[2022-04-06 13:32] LABS: ALANINE AMINOTRANSFERASE 61 U/L (12-78); ALBUMIN 2.5 G/DL (3.4-5.0); ALBUMIN/GLOBULIN RATIO 0.6 (1.1-1.5); ALKALINE PHOSPHATASE 462 IU/L (46-116); ANION GAP 8 (8-16); ASPARTATE AMINO TRANSFERASE 134 U/L (10-37); BILIRUBIN,TOTAL 0.8 MG/DL (0.1-1.0); BLOOD UREA NITROGEN 11 MG/DL (7-18); BUN/CREATININE RATIO 15.3 (6.6-38.0); CALCIUM 8.1 MG/DL (8.5-10.1); CHLORIDE 100 MMOL/L (99-107); CREATININE 0.72 MG/DL (0.40-0.90); GLUCOSE 133 MG/DL (70-104); POTASSIUM 4.7 MMOL/L (3.5-5.1); SODIUM 133 MMOL/L (135-145); TOTAL CARBON DIOXIDE 25.1 MMOL/L (24-32); TOTAL PROTEIN 6.6 G/DL (6.4-8.2); eGFR 83 ML/MIN
[2022-04-06 13:35] LABS: BASOPHILS # (AUTO) 0.1 X10'3 (0-0.2); BASOPHILS % (AUTO) 0.7 % (0-1); EOSINOPHILS # (AUTO) 0.1 X10'3 (0-0.9); EOSINOPHILS % (AUTO) 1.2 % (0-6); HEMATOCRIT 33.9 % (35.0-45.0); HEMOGLOBIN 11.1 g/dl (12.0-16.0); LYMPHOCYTES # (AUTO) 0.5 X10'3 (1.1-4.8); LYMPHOCYTES % (AUTO) 5.5 % (21-51); MEAN CORPUSCULAR HEMOGLOBIN 29.8 PG (27.0-31.0); MEAN CORPUSCULAR HGB CONC 32.8 g/dL (33.0-36.5); MEAN PLATELET VOLUME 9.2 FL (7.4-10.4); MONOCYTES # (AUTO) 0.7 X10'3 (0-0.9); MONOCYTES % (AUTO) 7.6 % (2-12); NEUTROPHILS # (AUTO) 8.2 X10'3 (1.8-7.7); PLATELET COUNT 304 X10'3 (140-440); RED BLOOD COUNT 3.72 X10'6 (4.20-5.60); RED CELL DISTRIBUTION WIDTH 19.1 % (11.5-14.5); WHITE BLOOD COUNT 9.6 X10'3 (4.5-11.0)
[2022-04-06 13:57] LABS: ANISOCYTOSIS 2+; PLATELET ESTIMATE NORMAL
[2022-04-06 13:58] LABS: POIKILOCYTOSIS FEW
[2022-04-06] MEDS ORDERED: IPRA4AER IH (22:12)
[2022-04-06] MEDS ORDERED: DOCU-345 PO (22:12)
[2022-04-06] MEDS ORDERED: METO-395 PO (22:12)
[2022-04-06] MEDS ORDERED: AMLO5TAB16 PO (22:12)
[2022-04-06] MEDS ORDERED: OXYC10TA47 PO (22:12)
[2022-04-07] MEDS ORDERED: furosemide 10 MG/1 ML 10ml inj IV SCH (08:00)
== END 2022-04-06 13:45 | disposition left against medical advice (07) ==
LOC: ER 12:38
DX: R06.02 Shortness of breath (principal); Z53.21 Procedure and treatment not carried out due to patient leaving prior to being seen by health care provider
CPT/HCPCS: 36415; 71045; 80053; 83880; 84484; 85008; 85025

== ENCOUNTER 2022-04-06 16:31 | Inpatient (IN) | payer MEDICAID ==
[~2022-04-06] VITALS: Ht 160 cm; Wt 74.3 kg
[~2022-04-06 16:31] MED LIST changes: +iohexol 350MG/ML 100ml bottle IV ONE
[2022-04-06 17:45] LABS: ALANINE AMINOTRANSFERASE 62 U/L (12-78); ALBUMIN 2.6 G/DL (3.4-5.0); ALBUMIN/GLOBULIN RATIO 0.6 (1.1-1.5); ALKALINE PHOSPHATASE 477 IU/L (46-116); ANION GAP 8 (8-16); ASPARTATE AMINO TRANSFERASE 141 U/L (10-37); BILIRUBIN,TOTAL 0.8 MG/DL (0.1-1.0); BLOOD UREA NITROGEN 10 MG/DL (7-18); BUN/CREATININE RATIO 14.1 (6.6-38.0); CALCIUM 8.2 MG/DL (8.5-10.1); CHLORIDE 101 MMOL/L (99-107); CREATININE 0.71 MG/DL (0.40-0.90); GLUCOSE 181 MG/DL (70-104); POTASSIUM 4.9 MMOL/L (3.5-5.1); SODIUM 133 MMOL/L (135-145); TOTAL CARBON DIOXIDE 23.7 MMOL/L (24-32); TOTAL PROTEIN 6.8 G/DL (6.4-8.2); eGFR 85 ML/MIN
[2022-04-06 17:49] LABS: BASOPHILS # (AUTO) 0.1 X10'3 (0-0.2); BASOPHILS % (AUTO) 0.6 % (0-1); EOSINOPHILS # (AUTO) 0.1 X10'3 (0-0.9); EOSINOPHILS % (AUTO) 1.1 % (0-6); HEMATOCRIT 35.1 % (35.0-45.0); HEMOGLOBIN 11.5 g/dl (12.0-16.0); LYMPHOCYTES # (AUTO) 0.6 X10'3 (1.1-4.8); LYMPHOCYTES % (AUTO) 6.2 % (21-51); MEAN CORPUSCULAR HEMOGLOBIN 30.2 PG (27.0-31.0); MEAN CORPUSCULAR HGB CONC 32.7 g/dL (33.0-36.5); MEAN CORPUSCULAR VOLUME 92.2 FL (78-98); MEAN PLATELET VOLUME 9.5 FL (7.4-10.4); MONOCYTES # (AUTO) 0.7 X10'3 (0-0.9); MONOCYTES % (AUTO) 7.3 % (2-12); NEUTROPHILS # (AUTO) 7.9 X10'3 (1.8-7.7); NEUTROPHILS % (AUTO) 84.8 % (42-75); PLATELET COUNT 253 X10'3 (140-440); RED CELL DISTRIBUTION WIDTH 19.1 % (11.5-14.5); WHITE BLOOD COUNT 9.4 X10'3 (4.5-11.0)
[2022-04-06] MEDS ORDERED: albuterol 2.5 MG/3 ML nebule CONTNEB PRN (18:10)
[2022-04-06] MEDS ORDERED: ipratropium 0.5 MG/2.5ML nebule IH ONE (18:10)
[2022-04-06] MEDS ORDERED: methylPREDNISolone sod succ 125mg/2ml vial IV ONE (18:10)
[2022-04-06] MEDS ORDERED: LORazepam 2 mg/ml vial IV ONE (18:15)
[2022-04-06 18:41] LABS: ABG BASE EXCESS -6.6 mmol/L (-2.0-2.0); ABG HCO3 18.2 mmol/L (22.0-26.0); ABG OXYGEN SATURATION 93.3 % (94-97); ABG PCO2 (T) 33.5 mmHg (32.0-45.0); ALLEN'S TEST POSITIVE; FCOHb 2.3 % (0.0-3.9); FLOW 2 L/min; FMetHb 0.2 % (0.0-1.5); PATIENT TEMPERATURE 36.7; TOTAL HEMOGLOBIN 12.2 G/dl (12.0-16.0)
--- NOTE | 2022-04-06 20:03 | NUR ---
PT ASLEEP AND NO LONGER GRUNTING. CONSULTED WITH MD ABOUT OBTAINING URINE. WILL LET PATIENT REST FOR THERAPUTIC PURPOSES AND OBTAIN URINE AT ANOTHER TIME
[2022-04-06] MEDS ORDERED: temazepam 15mg capsule PO PRN (21:00)
[2022-04-06] MEDS ORDERED: HYDROmorphone inj. 0.5 MG/0.5 ML DISP.SYRIN IV PRN (21:45)
[2022-04-06] MEDS ORDERED: magnesium hydroxide 30ml (MOM) UD suspension PO PRN (21:45)
[2022-04-06] MEDS ORDERED: ondansetron/PF 4mg/2ml inj IV PRN (21:45)
[2022-04-06] MEDS ORDERED: bisacodyl 10mg suppository rectal RC PRN (21:45)
[2022-04-06] MEDS ORDERED: diphenhydrAMINE 25mg capsule PO PRN (21:45)
[2022-04-06] MEDS ORDERED: normal saline 1000ml 1,000 ML IV SCH (21:45)
[2022-04-06] MEDS ORDERED: HYDROcodone/acetaminophen 5mg/325mg tablet PO PRN (21:45)
[2022-04-06] MEDS ORDERED: morphine 2 MG/ML inj. syringe IV PRN (21:45)
[2022-04-06] MEDS ORDERED: diphenhydrAMINE 50 mg/ml inj IV PRN (21:45)
[2022-04-06] MEDS ORDERED: mag hydrox/Alum hydrox/simeth 30ml oral suspension PO PRN (21:45)
[2022-04-06] MEDS ORDERED: acetaminophen 650mg rectal suppository RC PRN (21:45)
[2022-04-06] MEDS ORDERED: ondansetron 4mg rapidly disintigrating tab PO PRN (21:45)
[2022-04-06] MEDS ORDERED: acetaminophen 325mg tablet PO PRN ×2 (21:45)
[2022-04-06] MEDS ORDERED: METO-395 PO (22:12)
[2022-04-06] MEDS ORDERED: OXYC10TA47 PO (22:12)
[2022-04-06] MEDS ORDERED: DOCU-345 PO (22:12)
[2022-04-06] MEDS ORDERED: IPRA4AER IH (22:12)
[2022-04-06] MEDS ORDERED: AMLO5TAB16 PO (22:12)
[2022-04-06 22:20] LABS: PHOSPHORUS 3.3 MG/DL (2.3-4.5)
[2022-04-06 22:23] LABS: HEMOGLOBIN A1C 5.7 % (4.5-6.2)
[2022-04-06 22:25] LABS: APTT 27 SECONDS (22-32); D-DIMER 6.24 MG/L FEU (0-0.50)
[2022-04-06] MEDS ORDERED: non-formulary drug (Oxycodone Hcl 1 TAB) PO PRN (22:35)
[2022-04-06] MEDS ORDERED: non-formulary drug (Ipratropium/Albuterol Sulfate (Combivent Respimat Inhal Spray) 2 PUFFS IH PRN (22:35)
[2022-04-06] MEDS ORDERED: docusate sod 100mg capsule PO PRN (22:35)
[2022-04-06 23:06] LABS: URINE AMPHETAMINE SCREEN NEGATIVE (Neg); URINE BARBITUATE SCREEN NEGATIVE (Neg); URINE BENZODIAZEPINES SCREEN NEGATIVE (Neg); URINE CANNABINOID SCREEN NEGATIVE (Neg); URINE COCAINE SCREEN NEGATIVE (Neg); URINE METHADONE SCREEN NEGATIVE (Neg); URINE OPIATE SCREEN POSITIVE (Neg); URINE PHENCYCLIDINE SCREEN NEGATIVE (Neg)
[2022-04-06 23:10] LABS: CLARITY,URINE CLEAR (Clear); COLOR,URINE YELLOW (Yellow); GLUCOSE, URINE NEGATIVE (Neg); KETONES,URINE NEGATIVE (Neg); LEUKOCYTE ESTERASE ,URINE NEGATIVE (Neg); NITRITES, URINE NEGATIVE (Neg); OCCULT BLOOD,URINE NEGATIVE (Neg); PROTEIN,URINE NEGATIVE (Neg); UROBILINOGEN,URINE 0.2 E.U/dL (0.2-1.0)
[2022-04-06 23:11] LABS: UA COLLECTION TYPE CLN CATCH MIDSTREAM
[2022-04-06] MEDS: levoFLOXACIN-Levaquin 750MG/D5 150 ML IV SCH (23:56)
[2022-04-07] VITALS (9 sets, daily range): BP systolic 95–145; BP diastolic 57–87
[2022-04-07 04:30] LABS: BASOPHILS # (AUTO) 0.1 X10'3 (0-0.2); BASOPHILS % (AUTO) 0.7 % (0-1); EOSINOPHILS % (AUTO) 0 % (0-6); HEMATOCRIT 35.1 % (35.0-45.0); HEMOGLOBIN 11.5 g/dl (12.0-16.0); LYMPHOCYTES # (AUTO) 0.3 X10'3 (1.1-4.8); LYMPHOCYTES % (AUTO) 3.5 % (21-51); MEAN CORPUSCULAR HEMOGLOBIN 29.6 PG (27.0-31.0); MEAN CORPUSCULAR HGB CONC 32.8 g/dL (33.0-36.5); MEAN CORPUSCULAR VOLUME 90.2 FL (78-98); MEAN PLATELET VOLUME 9.6 FL (7.4-10.4); MONOCYTES # (AUTO) 0.1 X10'3 (0-0.9); MONOCYTES % (AUTO) 0.9 % (2-12); NEUTROPHILS # (AUTO) 8.9 X10'3 (1.8-7.7); NEUTROPHILS % (AUTO) 94.9 % (42-75); PLATELET COUNT 263 X10'3 (140-440); RED BLOOD COUNT 3.89 X10'6 (4.20-5.60); RED CELL DISTRIBUTION WIDTH 18.9 % (11.5-14.5); WHITE BLOOD COUNT 9.4 X10'3 (4.5-11.0)
[2022-04-07] MEDS: ipratropium/albuterol 3ml nebule NEB PRN ×3 (04:40→21:10)
--- NOTE | 2022-04-07 04:40 | NUR ---
Pt admitted and transported to the unit by transport staff. All personal belongings accounted for. Two RN skin assessment completed and noted tattoo to bilateral upper arms and chest, and 2+ non-pitting edema edema to bilateral legs. 0450: Pt was wheezing and voiced difficulty breathing. O2 at this time was 96% on 2L O2. Paged resp. therapist for breathing treatment. Pt also voiced pain to upper abdomen rated 8/10 and requested for morphine. Stated PO meds doesn't help. Pt educated on relaxation techniques and accepted. Will continue to monitor. Call light within reach.
[2022-04-07 04:51] LABS: PLATELET ESTIMATE NORMAL
[2022-04-07 04:52] LABS: ANISOCYTOSIS 2+; TARGET CELLS FEW
[2022-04-07] MEDS: morphine 2 MG/ML inj. syringe IV PRN ×3 (04:56→21:50)
[2022-04-07 06:39] LABS: ALANINE AMINOTRANSFERASE 58 U/L (12-78); ALBUMIN 2.5 G/DL (3.4-5.0); ALBUMIN/GLOBULIN RATIO 0.6 (1.1-1.5); ALKALINE PHOSPHATASE 449 IU/L (46-116); ANION GAP 8 (8-16); ASPARTATE AMINO TRANSFERASE 119 U/L (10-37); BILIRUBIN,TOTAL 0.9 MG/DL (0.1-1.0); BLOOD UREA NITROGEN 12 MG/DL (7-18); BUN/CREATININE RATIO 16.9 (6.6-38.0); CALCIUM 8.4 MG/DL (8.5-10.1); CHLORIDE 102 MMOL/L (99-107); CHOL/HDL RATIO 3.8 (0.00-4.99); CHOLESTEROL 170 MG/DL (0-200); CREATININE 0.71 MG/DL (0.40-0.90); GLUCOSE 172 MG/DL (70-104); HDL CHOLESTEROL 45 MG/DL (35-60); LDL CHOLESTEROL 101 MG/DL (50-100); POTASSIUM 4.9 MMOL/L (3.5-5.1); SODIUM 135 MMOL/L (135-145); TOTAL PROTEIN 6.7 G/DL (6.4-8.2); TRIGLYCERIDES 66 MG/DL (20-135); eGFR 85 ML/MIN
--- NOTE | 2022-04-07 06:40 | NUR ---
Problems reprioritized. Patient report given, JERRELL Alford, questions answered & plan of care reviewed with .
[2022-04-07] MEDS: pantoprazole 40mg Tablet.DR PO SCH (07:30)
[2022-04-07] MEDS: heparin, porcine 5000 units/ml vial SQ SCH ×2 (08:00→20:01)
[2022-04-07] MEDS: metoprolol succinate 25mg (24-HOUR) SR. Tablet PO SCH (08:00)
[2022-04-07] MEDS: docusate sod 100mg capsule PO SCH ×2 (08:00→20:01)
[2022-04-07] MEDS: amLODIPine 5mg tablet PO SCH (08:00)
[2022-04-07] MEDS: nicotine 21mg patch - 24 hr TD SCH (08:00)
[2022-04-07] MEDS: furosemide 40mg/4ml inj IV SCH ×2 (08:00→20:01)
[2022-04-07] MEDS: methylPREDNISolone sod succ 125mg/2ml vial IV SCH ×2 (08:00→20:01)
[2022-04-07] MEDS ORDERED: albumin (human) 25% 100 ML IV solution IV ONE (14:45)
[2022-04-07] MEDS: HYDROcodone/acetaminophen 10/325mg tab PO PRN ×2 (15:34→20:00)
--- NOTE | 2022-04-07 22:11 | NUR ---
Pt voiced chest pain rated 8/10. EKG completed per protocol. MD Marina notified to read EKG results. No new orders. PRN meds administered per order. Pt also voiced her pain may be due to indigestion or heartburn. I administered PRN Maalox per order. Will continue to monitor pt.
[2022-04-07] MEDS: levoFLOXACIN-Levaquin 750MG/D5 150 ML IV SCH (23:47)
[2022-04-08] MEDS: HYDROcodone/acetaminophen 10/325mg tab PO PRN ×3 (00:49→15:02)
[2022-04-08 06:00] VITALS: BP 127/71
--- NOTE | 2022-04-08 06:38 | NUR ---
Problems reprioritized. Patient report given, JERRELL Sidhu, questions answered & plan of care reviewed with .
--- NOTE | 2022-04-08 06:49 | NUR ---
Patient in room PCU 3024. I have received report from JERRELL Hernández and had the opportunity to ask questions and assume patient care.
[2022-04-08 07:25] LABS: ALANINE AMINOTRANSFERASE 47 U/L (12-78); ALBUMIN 2.7 G/DL (3.4-5.0); ALBUMIN/GLOBULIN RATIO 0.7 (1.1-1.5); ALKALINE PHOSPHATASE 382 IU/L (46-116); ANION GAP 6 (8-16); ASPARTATE AMINO TRANSFERASE 73 U/L (10-37); BASOPHILS % (AUTO) 0.1 % (0-1); BILIRUBIN,TOTAL 0.6 MG/DL (0.1-1.0); BLOOD UREA NITROGEN 21 MG/DL (7-18); BUN/CREATININE RATIO 24.1 (6.6-38.0); CHLORIDE 99 MMOL/L (99-107); CREATININE 0.87 MG/DL (0.40-0.90); EOSINOPHILS % (AUTO) 0 % (0-6); GLUCOSE 164 MG/DL (70-104); HEMATOCRIT 30.5 % (35.0-45.0); LYMPHOCYTES # (AUTO) 0.4 X10'3 (1.1-4.8); LYMPHOCYTES % (AUTO) 3.5 % (21-51); MEAN CORPUSCULAR HEMOGLOBIN 29.6 PG (27.0-31.0); MEAN CORPUSCULAR HGB CONC 32.9 g/dL (33.0-36.5); MEAN CORPUSCULAR VOLUME 89.8 FL (78-98); MEAN PLATELET VOLUME 9.6 FL (7.4-10.4); MONOCYTES # (AUTO) 0.6 X10'3 (0-0.9); MONOCYTES % (AUTO) 5.4 % (2-12); NEUTROPHILS # (AUTO) 10.6 X10'3 (1.8-7.7); PLATELET COUNT 221 X10'3 (140-440); POTASSIUM 4.5 MMOL/L (3.5-5.1); RED BLOOD COUNT 3.39 X10'6 (4.20-5.60); RED CELL DISTRIBUTION WIDTH 18.6 % (11.5-14.5); SODIUM 132 MMOL/L (135-145); TOTAL CARBON DIOXIDE 26.9 MMOL/L (24-32); TOTAL PROTEIN 6.6 G/DL (6.4-8.2); WHITE BLOOD COUNT 11.7 X10'3 (4.5-11.0); eGFR 67 ML/MIN
[2022-04-08] MEDS: metoprolol succinate 25mg (24-HOUR) SR. Tablet PO SCH (09:07)
[2022-04-08] MEDS: pantoprazole 40mg Tablet.DR PO SCH (09:08)
[2022-04-08] MEDS: docusate sod 100mg capsule PO SCH (09:08)
[2022-04-08] MEDS: amLODIPine 5mg tablet PO SCH (09:09)
[2022-04-08] MEDS: nicotine 21mg patch - 24 hr TD SCH (09:11)
[2022-04-08] MEDS: methylPREDNISolone sod succ 125mg/2ml vial IV SCH (09:11)
[2022-04-08] MEDS: heparin, porcine 5000 units/ml vial SQ SCH (09:14)
[2022-04-08] MEDS: furosemide 40mg/4ml inj IV SCH (09:16)
[2022-04-08 11:00] VITALS: BP 126/78
[2022-04-08] MEDS ORDERED: AZIT-83 PO (11:18)
[2022-04-08] MEDS ORDERED: OXYC-658 PO (11:18)
[2022-04-08] MEDS ORDERED: PRED20TA PO (11:18)
[2022-04-08] MEDS: ipratropium/albuterol 3ml nebule NEB PRN (14:15)
--- NOTE | 2022-04-08 14:26 | NUR ---
O2 Sat at rest on room air:_93_% If below 89%: Recovery O2 Sat at rest on ___LPM:___%:___% via (mask/nasal cannula, etc..) No further documentation is necessary. If O2 Sat did not drop below 89% on room air,ambulate patient on room air. O2 Sat while ambulating on room air:___% Recovery O2 Sat while ambulating on ___LPM:___% No further documentation is necessary. If patient does not drop below 89% while ambulating, he/she does not qualify for home O2.
--- NOTE | 2022-04-08 14:42 | NUR ---
PAGER ID: [phone] MESSAGE: Room: 4524B: [place]: This pt is requesting a nebulizer device for home, but I don't see any nebulizer treatments ordered at home. Would you like them to have nebulizer treatments at home? Thea, RN [phone]
--- NOTE | 2022-04-08 18:44 | NUR ---
Patient discharged to home from the hospital. Discharge paperwork was reviewed with the assistance of this medical writer. PIV and telemetry were removed prior to discharge. All belongings were returned at the time of discharge. Discharge medications were sent to the patient's preferred pharmacy.
== END 2022-04-08 15:13 | disposition home health service (06) | DRG 280 ==
LOC: ER 16:31 → ED HOLD 21:51 → PCU 3S 04-07 04:00
PROVIDERS: ADMIT Family Medicine; ATTEND Family Medicine
PROC: B32T1ZZ Computerized Tomography (CT Scan) of Left Pulmonary Artery using Low Osmolar Contrast (ICD-10-PCS; 2022-04-06)
PROC: B3201ZZ Computerized Tomography (CT Scan) of Thoracic Aorta using Low Osmolar Contrast (ICD-10-PCS; 2022-04-06)
PROC: B32S1ZZ Computerized Tomography (CT Scan) of Right Pulmonary Artery using Low Osmolar Contrast (ICD-10-PCS; 2022-04-06)
PROC: 0W9G3ZZ Drainage of Peritoneal Cavity, Percutaneous Approach (ICD-10-PCS; principal; 2022-04-07)
DX: K70.31 Alcoholic cirrhosis of liver with ascites (principal); J96.00 Acute respiratory failure, unspecified whether with hypoxia or hypercapnia; I81 Portal vein thrombosis; K76.6 Portal hypertension; C22.0 Liver cell carcinoma; I11.0 Hypertensive heart disease with heart failure; J44.1 Chronic obstructive pulmonary disease with (acute) exacerbation; C78.00 Secondary malignant neoplasm of unspecified lung; I50.32 Chronic diastolic (congestive) heart failure; E87.1 Hypo-osmolality and hyponatremia; K81.1 Chronic cholecystitis; I48.91 Unspecified atrial fibrillation; G40.909 Epilepsy, unspecified, not intractable, without status epilepticus; I25.10 Atherosclerotic heart disease of native coronary artery without angina pectoris; F15.10 Other stimulant abuse, uncomplicated; B19.20 Unspecified viral hepatitis C without hepatic coma; F10.20 Alcohol dependence, uncomplicated; F17.210 Nicotine dependence, cigarettes, uncomplicated; G89.4 Chronic pain syndrome; Z56.0 Unemployment, unspecified; I25.2 Old myocardial infarction; Z85.05 Personal history of malignant neoplasm of liver; Z86.718 Personal history of other venous thrombosis and embolism; Z88.0 Allergy status to penicillin; Z88.5 Allergy status to narcotic agent; Z79.899 Other long term (current) drug therapy; Z71.6 Tobacco abuse counseling
CPT/HCPCS: 36415; 36600; 49083; 71275; 80053; 80061; 80305; 81003; 82140; 82803; 82948; 83036; 83605; 83735; 83880; 84100; 84484; 85008; 85018; 85025; 85379; 85610; 85730; 87040; 87081; 87635; 92508; 92616; 93005; 94640; 94760; 96374; 96375; 97116; 97161; 97530; 99285; A7015; G0378; J1644; J1940; J1956; J2060; J2270; J2930; J7030; P9047; Q9967

== ENCOUNTER 2022-04-17 07:32 | Emergency (ER) | payer MEDICAID ==
[~2022-04-17] VITALS: Ht 160 cm; Wt 75.0 kg
[~2022-04-17 07:32] MED LIST changes: +AMLO5TAB16 PO; +AZIT-83 PO; +DOCU-345 PO; -LORA-268 PO; -NOR5T PO; -ONDA4TAB12 PO; +PRED20TA PO; -iohexol 350MG/ML 100ml bottle IV ONE
--- NOTE | 2022-04-17 08:21 | NUR ---
PT STATES SHE WAS HERE 1 WEEK AGO FOR A PARACENTESIS. PT STATED SHE WAS TOLD TO COME BACK TO ER IF SH FELT SHE NEEDED ANOTHER ONE. PT REPORTS HAVING KIDNEY FAILURE, NOT ON DIALYSIS AND STAGE 4 LUNG CX. PT WAS DIAGNOSED HERE AND IS WAITING FOR ONCOLOGY APOINTMENT.
[2022-04-17 08:30] LABS: BASOPHILS # (AUTO) 0.1 X10'3 (0-0.2); BASOPHILS % (AUTO) 0.6 % (0-1); EOSINOPHILS # (AUTO) 0.1 X10'3 (0-0.9); HEMATOCRIT 36.5 % (35.0-45.0); LYMPHOCYTES # (AUTO) 0.6 X10'3 (1.1-4.8); LYMPHOCYTES % (AUTO) 5.9 % (21-51); MEAN CORPUSCULAR HEMOGLOBIN 29.3 PG (27.0-31.0); MEAN CORPUSCULAR HGB CONC 32.9 g/dL (33.0-36.5); MEAN PLATELET VOLUME 8.1 FL (7.4-10.4); MONOCYTES # (AUTO) 1.2 X10'3 (0-0.9); MONOCYTES % (AUTO) 12.3 % (2-12); NEUTROPHILS # (AUTO) 7.9 X10'3 (1.8-7.7); NEUTROPHILS % (AUTO) 80.2 % (42-75); PLATELET COUNT 347 X10'3 (140-440); RED CELL DISTRIBUTION WIDTH 18.8 % (11.5-14.5); WHITE BLOOD COUNT 9.8 X10'3 (4.5-11.0)
[2022-04-17 08:35] LABS: ALANINE AMINOTRANSFERASE 45 U/L (12-78); ALBUMIN 2.7 G/DL (3.4-5.0); ALBUMIN/GLOBULIN RATIO 0.7 (1.1-1.5); ALKALINE PHOSPHATASE 559 IU/L (46-116); ANION GAP 7 (8-16); ASPARTATE AMINO TRANSFERASE 88 U/L (10-37); BILIRUBIN,TOTAL 1.1 MG/DL (0.1-1.0); BLOOD UREA NITROGEN 11 MG/DL (7-18); BUN/CREATININE RATIO 16.4 (6.6-38.0); CALCIUM 8.9 MG/DL (8.5-10.1); CHLORIDE 101 MMOL/L (99-107); CREATININE 0.67 MG/DL (0.40-0.90); GLUCOSE 157 MG/DL (70-104); LIPASE 105 U/L (73-393); POTASSIUM 4.1 MMOL/L (3.5-5.1); SODIUM 136 MMOL/L (135-145); TOTAL CARBON DIOXIDE 27.7 MMOL/L (24-32); TOTAL PROTEIN 6.6 G/DL (6.4-8.2); eGFR > 90 ML/MIN
[2022-04-17] MEDS ORDERED: albumin (human) 25% 100 ML IV solution IV ONE (09:25)
[2022-04-17 11:30] LABS: CLARITY,URINE CLEAR (Clear); COLOR,URINE YELLOW (Yellow); GLUCOSE, URINE NEGATIVE (Neg); KETONES,URINE TRACE mg/dl (Neg); LEUKOCYTE ESTERASE ,URINE NEGATIVE (Neg); NITRITES, URINE NEGATIVE (Neg); OCCULT BLOOD,URINE NEGATIVE (Neg); PH,URINE 6.5 (4.8-8.0); PROTEIN,URINE TRACE mg/dl (Neg)
[2022-04-17 11:31] LABS: UA COLLECTION TYPE CLN CATCH MIDSTREAM; URINE HCG NEGATIVE (NEG)
[2022-04-17 11:46] LABS: BACTERIA,URINE NONE SEEN /HPF (Neg); MUCUS STRANDS MODERATE /LPF (Neg); RBC,URINE NONE SEEN /HPF (0-2); WBC,URINE NONE SEEN /HPF (0-4)
[2022-04-17 11:48] LABS: SQUAMOUS EPITHELIAL CELL,UR MODERATE /LPF (FEW)
[2022-04-17] MEDS ORDERED: LIDOcaine 1%/PF 5ML 10 MG/ML VIAL ONE (14:57)
--- NOTE | 2022-04-17 14:57 | NUR ---
PT TAKEN TO IR, WILL HOLD RM13 FOR RETURN
[2022-04-17 15:02] VITALS: BP 136/63
[2022-04-17 15:03] VITALS: BP 137/73
[2022-04-17 16:18] VITALS: BP 134/73
== END 2022-04-17 16:20 | disposition home or self-care (01) ==
LOC: ER 07:33
DX: R18.8 Other ascites (principal); C22.0 Liver cell carcinoma; I10 Essential (primary) hypertension; I25.2 Old myocardial infarction; J44.9 Chronic obstructive pulmonary disease, unspecified; G89.29 Other chronic pain; Z86.19 Personal history of other infectious and parasitic diseases; Z98.890 Other specified postprocedural states; Z56.0 Unemployment, unspecified; Z88.0 Allergy status to penicillin; Z88.5 Allergy status to narcotic agent; Z88.6 Allergy status to analgesic agent; Z79.899 Other long term (current) drug therapy
CPT/HCPCS: 49083; 80053; 81001; 81025; 83690; 85025; 96365; 99285; J3490; P9047

== ENCOUNTER 2022-05-03 12:38 | Emergency (ER) | payer MEDICAID ==
[~2022-05-03] VITALS: Ht 160 cm; Wt 69.1 kg
[~2022-05-03 12:38] MED LIST changes: -AZIT-83 PO
[2022-05-03] MEDS ORDERED: ipratropium/albuterol 3ml nebule NEB ONE (14:40)
[2022-05-03 15:10] VITALS: BP 133/71
== END 2022-05-03 15:56 | disposition home or self-care (01) ==
LOC: ER 12:39
DX: J44.9 Chronic obstructive pulmonary disease, unspecified (principal); R18.8 Other ascites; I10 Essential (primary) hypertension; I25.2 Old myocardial infarction; G89.29 Other chronic pain; Z86.19 Personal history of other infectious and parasitic diseases; Z56.0 Unemployment, unspecified; Z98.890 Other specified postprocedural states; Z88.0 Allergy status to penicillin; Z88.5 Allergy status to narcotic agent; Z88.8 Allergy status to other drugs, medicaments and biological substances; Z79.899 Other long term (current) drug therapy
CPT/HCPCS: 94640; 99283

== ENCOUNTER 2022-05-12 20:30 | Inpatient (IN) | payer MEDICAID ==
[~2022-05-12] VITALS: Ht 160 cm; Wt 70.5 kg
[~2022-05-12 20:30] MED LIST changes: -OXYC-658 PO; -PRED20TA PO
[2022-05-12] MEDS ORDERED: albuterol 2.5 MG/3 ML nebule NEB ONE (20:40)
[2022-05-12] MEDS ORDERED: methylPREDNISolone sod succ 125mg/2ml vial IV ONE (20:40)
[2022-05-12] MEDS ORDERED: ipratropium/albuterol 3ml nebule NEB ONE (20:40)
[2022-05-12 21:30] LABS: BASOPHILS # (AUTO) 0.1 X10'3 (0-0.2); BASOPHILS % (AUTO) 0.8 % (0-1); EOSINOPHILS % (AUTO) 0.4 % (0-6); HEMATOCRIT 37.5 % (35.0-45.0); HEMOGLOBIN 12.4 g/dl (12.0-16.0); LYMPHOCYTES # (AUTO) 1.3 X10'3 (1.1-4.8); LYMPHOCYTES % (AUTO) 11.8 % (21-51); MEAN CORPUSCULAR HEMOGLOBIN 28.6 PG (27.0-31.0); MEAN CORPUSCULAR HGB CONC 33.1 g/dL (33.0-36.5); MEAN CORPUSCULAR VOLUME 86.2 FL (78-98); MEAN PLATELET VOLUME 7.9 FL (7.4-10.4); MONOCYTES # (AUTO) 0.9 X10'3 (0-0.9); MONOCYTES % (AUTO) 8.5 % (2-12); NEUTROPHILS # (AUTO) 8.4 X10'3 (1.8-7.7); NEUTROPHILS % (AUTO) 78.5 % (42-75); PLATELET COUNT 373 X10'3 (140-440); RED BLOOD COUNT 4.35 X10'6 (4.20-5.60); RED CELL DISTRIBUTION WIDTH 18.4 % (11.5-14.5); WHITE BLOOD COUNT 10.7 X10'3 (4.5-11.0)
[2022-05-12 21:46] LABS: ALANINE AMINOTRANSFERASE 29 U/L (12-78); ALBUMIN 2.7 G/DL (3.4-5.0); ALBUMIN/GLOBULIN RATIO 0.7 (1.1-1.5); ALKALINE PHOSPHATASE 436 IU/L (46-116); ANION GAP 12 (8-16); ASPARTATE AMINO TRANSFERASE 96 U/L (10-37); BILIRUBIN,TOTAL 0.9 MG/DL (0.1-1.0); BLOOD UREA NITROGEN 13 MG/DL (7-18); BUN/CREATININE RATIO 17.1 (6.6-38.0); CALCIUM 8.6 MG/DL (8.5-10.1); CHLORIDE 100 MMOL/L (99-107); CREATININE 0.76 MG/DL (0.40-0.90); GLUCOSE 95 MG/DL (70-104); MAGNESIUM 1.7 MG/DL (1.5-2.4); POTASSIUM 4.2 MMOL/L (3.5-5.1); SODIUM 133 MMOL/L (135-145); TOTAL PROTEIN 6.8 G/DL (6.4-8.2); eGFR 78 ML/MIN
[2022-05-12 22:18] LABS: CLARITY,URINE CLEAR (Clear); COLOR,URINE YELLOW (Yellow); GLUCOSE, URINE NEGATIVE (Neg); KETONES,URINE TRACE mg/dl (Neg); LEUKOCYTE ESTERASE ,URINE NEGATIVE (Neg); NITRITES, URINE NEGATIVE (Neg); OCCULT BLOOD,URINE SMALL (Neg); PH,URINE 5.5 (4.8-8.0); PROTEIN,URINE TRACE mg/dl (Neg)
[2022-05-12 22:19] LABS: UA COLLECTION TYPE NON-SPECIFIED
[2022-05-12 22:24] LABS: BACTERIA,URINE FEW /HPF (Neg); SQUAMOUS EPITHELIAL CELL,UR FEW /LPF (FEW); WBC,URINE NONE SEEN /HPF (0-4)
[2022-05-12] MEDS ORDERED: furosemide 40mg/4ml inj IV ONE (22:25)
[2022-05-12] MEDS ORDERED: morphine 4 MG/ML inj SYRINge IV ONE (22:30)
[2022-05-12] MEDS ORDERED: ondansetron/PF 4mg/2ml inj IV ONE (22:30)
[2022-05-12] MEDS ORDERED: POTASSIUM BICARB 20meq eff tab 20 MEQ TABLET.EFF PO PRN ×2 (23:25)
[2022-05-12] MEDS ORDERED: HYDROcodone/acetaminophen 5mg/325mg tablet PO PRN (23:25)
[2022-05-12] MEDS ORDERED: mag hydrox/Alum hydrox/simeth 30ml oral suspension PO PRN (23:25)
[2022-05-12] MEDS ORDERED: ondansetron/PF 4mg/2ml inj IV PRN (23:25)
[2022-05-12] MEDS ORDERED: magnesium Cl slow-release 64mg tablet PO PRN (23:25)
[2022-05-12] MEDS ORDERED: magnesium 4gm in 100ml NS 100 ML IV PRN (23:25)
[2022-05-12] MEDS ORDERED: magnesium 2GM in 50ml NS 50 ML IV PRN (23:25)
[2022-05-12] MEDS ORDERED: magnesium hydroxide 30ml (MOM) UD suspension PO PRN (23:25)
[2022-05-12] MEDS ORDERED: potassium CL 10mEq/100ml bag 100 ML IV PRN (23:25)
[2022-05-12] MEDS ORDERED: ipratropium/albuterol 3ml nebule NEB PRN (23:25)
[2022-05-12] MEDS ORDERED: acetaminophen 325mg tablet PO PRN ×2 (23:25)
[2022-05-13] MEDS ORDERED: methylPREDNISolone sod succ 125mg/2ml vial IV SCH
[2022-05-13] MEDS ORDERED: PROM12.512 PO (02:14)
[2022-05-13] MEDS ORDERED: OXYC-658 PO (02:14)
[2022-05-13 02:32] LABS: MAGNESIUM 1.6 MG/DL (1.5-2.4); POTASSIUM 4.3 MMOL/L (3.5-5.1)
--- NOTE | 2022-05-13 02:32 | NUR ---
FLU SWAB FROM [facility] CAME BACK NEGATIVE PER LAB.
[2022-05-13 03:31] VITALS: BP 135/68
[2022-05-13] MEDS: morphine 2 MG/ML inj. syringe IV PRN (03:46)
[2022-05-13] MEDS: HYDROcodone/acetaminophen 10/325mg tab PO PRN ×4 (05:05→22:52)
[2022-05-13 06:00] VITALS: BP 146/74
--- NOTE | 2022-05-13 06:30 | NUR ---
Patient in room ORTHO 4009. I have received report from Silva ALLAN and had the opportunity to ask questions and assume patient care.
--- NOTE | 2022-05-13 07:29 | NUR ---
Malnutrition consult: Pt admitted w/ CHF exacerbation and pleural effusion per EMR. Pt reports 14-23lb wt lost per MST, though current wt is consistent w/ wt from last month. No signs of muscle or fat wasting reported. No edema noted. Currently on Heart healthy diet pending PO. At this time pt does not meet minimum criteria for malnutrition. Will continue to monitor. Addendum: 05/13/22 at [address] Amended: Links added.
[2022-05-13] MEDS ORDERED: albuterol 2.5 MG/3 ML nebule NEB PRN (07:40)
[2022-05-13] MEDS: metoprolol succinate 25mg (24-HOUR) SR. Tablet PO SCH (07:43)
[2022-05-13] MEDS: amLODIPine 5mg tablet PO SCH (07:44)
[2022-05-13] MEDS: furosemide 40mg/4ml inj IV SCH (07:44)
[2022-05-13] MEDS: morphine ER 15mg tablet PO SCH ×2 (07:44→20:32)
[2022-05-13] MEDS: docusate sod 100mg capsule PO SCH ×2 (07:44→20:33)
[2022-05-13] MEDS: methylPREDNISolone sod succ/PF 40mg inj. IV SCH ×2 (07:44→16:00)
[2022-05-13] MEDS ORDERED: oxyCODONE IR 5mg (immed. release) tablet PO PRN ×2 (07:45→17:35)
[2022-05-13] MEDS: enoxaparin 40mg/0.4ml syringe SUBCUT SCH (07:45)
[2022-05-13] MEDS: K and/or MAG REPLACEMENT MC SCH ×2 (08:00→19:32)
[2022-05-13 10:00] VITALS: BP 133/57
[2022-05-13] MEDS ORDERED: IPRA4AER IH (11:09)
[2022-05-13] MEDS ORDERED: METO-395 PO (11:10)
[2022-05-13] MEDS ORDERED: OXYC20TA40 PO (11:13)
[2022-05-13] MEDS ORDERED: PROM25TA14 PO (11:13)
--- NOTE | 2022-05-13 12:30 | NUR ---
Notified Dr. Aden that patient stated she has left peripheral vision loss, he ordered head CT with contrast.
[2022-05-13] MEDS ORDERED: cefTRIAXone 1g/NS 100ml IVPB 100 ML IV ONE (17:30)
[2022-05-13] MEDS ORDERED: proMETHazine 25mg tablet PO PRN (17:35)
[2022-05-13 18:00] VITALS: BP 130/70
--- NOTE | 2022-05-13 18:22 | NUR ---
Problems reprioritized. Patient report given, questions answered & plan of care reviewed with Mady Pantoja RN.
[2022-05-13] MEDS: proMETHazine 25mg tablet PO SCH (20:33)
[2022-05-13] MEDS: ipratropium/albuterol 3ml nebule NEB SCH (20:56)
[2022-05-13 22:00] VITALS: BP 121/63
[2022-05-14] VITALS (9 sets, daily range): BP systolic 102–134; BP diastolic 50–61
[2022-05-14] MEDS: methylPREDNISolone sod succ/PF 40mg inj. IV SCH ×3 (00:06→15:32)
[2022-05-14] MEDS: proMETHazine 25mg tablet PO SCH ×4 (01:52→19:51)
[2022-05-14] MEDS: ipratropium/albuterol 3ml nebule NEB SCH ×4 (03:23→20:12)
[2022-05-14 06:30] LABS: MAGNESIUM 1.9 MG/DL (1.5-2.4)
[2022-05-14] MEDS: furosemide 40mg/4ml inj IV SCH (07:42)
[2022-05-14] MEDS: morphine ER 15mg tablet PO SCH ×2 (07:43→19:50)
[2022-05-14] MEDS: docusate sod 100mg capsule PO SCH ×2 (07:43→19:49)
[2022-05-14] MEDS: amLODIPine 5mg tablet PO SCH (07:44)
[2022-05-14] MEDS: metoprolol succinate 25mg (24-HOUR) SR. Tablet PO SCH ×2 (07:44→08:00)
[2022-05-14] MEDS: cefTRIAXone 1g/NS 100ml IVPB 100 ML IV SCH (07:54)
--- NOTE | 2022-05-14 07:58 | NUR ---
decreased peripheral vision left eye Addendum: 05/14/22 at 0804 by Trudy Aguilar RN Amended: Links added.
[2022-05-14] MEDS: K and/or MAG REPLACEMENT MC SCH ×2 (08:00→20:00)
[2022-05-14] MEDS: enoxaparin 40mg/0.4ml syringe SUBCUT SCH (08:05)
[2022-05-14] MEDS ORDERED: LIDOcaine 1%/PF 5ML 10 MG/ML VIAL ONE (13:41)
[2022-05-14] MEDS: HYDROcodone/acetaminophen 10/325mg tab PO PRN (13:59)
[2022-05-14] MEDS ORDERED: albumin (human) 25% 100 ML IV solution IV ONE (14:35)
[2022-05-14] MEDS: morphine 2 MG/ML inj. syringe IV PRN ×2 (15:32→23:07)
[2022-05-14 18:05] LABS: BASOPHILS % (AUTO) 0 % (0-1); EOSINOPHILS % (AUTO) 0 % (0-6); HEMATOCRIT 34.2 % (35.0-45.0); HEMOGLOBIN 10.7 g/dl (12.0-16.0); LYMPHOCYTES # (AUTO) 0.6 X10'3 (1.1-4.8); LYMPHOCYTES % (AUTO) 4.3 % (21-51); MEAN CORPUSCULAR HEMOGLOBIN 27.6 PG (27.0-31.0); MEAN CORPUSCULAR HGB CONC 31.4 g/dL (33.0-36.5); MEAN CORPUSCULAR VOLUME 87.9 FL (78-98); MEAN PLATELET VOLUME 9.4 FL (7.4-10.4); MONOCYTES # (AUTO) 0.5 X10'3 (0-0.9); MONOCYTES % (AUTO) 3.8 % (2-12); NEUTROPHILS # (AUTO) 12.9 X10'3 (1.8-7.7); NEUTROPHILS % (AUTO) 91.9 % (42-75); PLATELET COUNT 327 X10'3 (140-440); RED BLOOD COUNT 3.89 X10'6 (4.20-5.60); RED CELL DISTRIBUTION WIDTH 18.3 % (11.5-14.5); WHITE BLOOD COUNT 14.1 X10'3 (4.5-11.0)
[2022-05-14 18:22] LABS: ALANINE AMINOTRANSFERASE 28 U/L (12-78); ALBUMIN 2.8 G/DL (3.4-5.0); ALBUMIN/GLOBULIN RATIO 0.7 (1.1-1.5); ALKALINE PHOSPHATASE 351 IU/L (46-116); ANION GAP 14 (8-16); ASPARTATE AMINO TRANSFERASE 64 U/L (10-37); BILIRUBIN,TOTAL 0.4 MG/DL (0.1-1.0); BLOOD UREA NITROGEN 22 MG/DL (7-18); BUN/CREATININE RATIO 25.3 (6.6-38.0); CALCIUM 8.7 MG/DL (8.5-10.1); CHLORIDE 99 MMOL/L (99-107); CREATININE 0.87 MG/DL (0.40-0.90); GLUCOSE 167 MG/DL (70-104); SODIUM 134 MMOL/L (135-145); TOTAL CARBON DIOXIDE 21.4 MMOL/L (24-32); TOTAL PROTEIN 6.6 G/DL (6.4-8.2); eGFR 67 ML/MIN
[2022-05-14 18:29] LABS: POTASSIUM 4.8 MMOL/L (3.5-5.1)
--- NOTE | 2022-05-14 18:50 | NUR ---
Patient in room ORTHO 4009. I have received report from Trudy ALLAN and had the opportunity to ask questions and assume patient care.
[2022-05-14 21:20] LABS: PLATELET ESTIMATE NORMAL
[2022-05-14 21:21] LABS: ANISOCYTOSIS 2+
[2022-05-14 21:22] LABS: LARGE PLATELETS FEW
[2022-05-15] MEDS: proMETHazine 25mg tablet PO SCH ×2 (02:14→08:10)
[2022-05-15] MEDS: methylPREDNISolone sod succ/PF 40mg inj. IV SCH ×2 (02:25→08:13)
[2022-05-15] MEDS: ipratropium/albuterol 3ml nebule NEB SCH ×3 (02:32→14:24)
[2022-05-15] MEDS: HYDROcodone/acetaminophen 10/325mg tab PO PRN ×2 (02:32→12:32)
[2022-05-15 03:44] VITALS: BP 126/56
[2022-05-15] MEDS: morphine 2 MG/ML inj. syringe IV PRN (03:47)
[2022-05-15 05:00] VITALS: BP 158/71
--- NOTE | 2022-05-15 06:00 | NUR ---
Patient in room ORTHO 4009. I have received report from Brittany THAKUR and had the opportunity to ask questions and assume patient care. Addendum: 05/15/22 at 0741 by Danni Thurman RN Amended: Links added.
--- NOTE | 2022-05-15 06:30 | NUR ---
Discontinued the f/c without incident. Addendum: 05/15/22 at 1434 by Danni Thurman RN Amended: Links added.
--- NOTE | 2022-05-15 07:00 | NUR ---
Pt. awake A & O at this time denies N?V. Pt. c/o of discomfort with the f/c.- f/c draining to gravity with adequate output noted in the collecting bag clear yellow in color. Addendum: 05/15/22 at 0738 by Danni Thurman RN Amended: Links added.
[2022-05-15 07:29] LABS: MAGNESIUM 2.2 MG/DL (1.5-2.4); POTASSIUM 4.7 MMOL/L (3.5-5.1)
--- NOTE | 2022-05-15 07:35 | NUR ---
Received 's orders ([facility]) to remove the f/c r/t to pt. insisting cast to be removed. Fc discontinued without incident. Addendum: 05/15/22 at 0745 by Danni Thurman RN Amended: Links added.
[2022-05-15] MEDS: K and/or MAG REPLACEMENT MC SCH (08:00)
[2022-05-15] MEDS: cefTRIAXone 1g/NS 100ml IVPB 100 ML IV SCH (08:00)
[2022-05-15] MEDS: furosemide 40mg/4ml inj IV SCH (08:01)
[2022-05-15] MEDS: morphine ER 15mg tablet PO SCH (08:01)
[2022-05-15] MEDS: amLODIPine 5mg tablet PO SCH (08:07)
[2022-05-15] MEDS: metoprolol succinate 25mg (24-HOUR) SR. Tablet PO SCH (08:10)
--- NOTE | 2022-05-15 08:10 | NUR ---
Pt. awake A & O c/o pain to abd- medicated for pain. No c/o SOB at this time. No c/o N/v at this time. Pt. on fluid restrictions but continously asks for more fluids; pt. educated. Call light within reach and bed in low position. Addendum: 05/15/22 at 1339 by Danni Thurman RN Amended: Links added.
[2022-05-15] MEDS: enoxaparin 40mg/0.4ml syringe SUBCUT SCH (08:12)
[2022-05-15] MEDS: docusate sod 100mg capsule PO SCH (08:17)
[2022-05-15 09:00] LABS: BASOPHILS % (AUTO) 0.3 % (0-1); EOSINOPHILS % (AUTO) 0 % (0-6); HEMATOCRIT 32.9 % (35.0-45.0); HEMOGLOBIN 10.5 g/dl (12.0-16.0); LYMPHOCYTES # (AUTO) 0.5 X10'3 (1.1-4.8); LYMPHOCYTES % (AUTO) 3.5 % (21-51); MEAN CORPUSCULAR HEMOGLOBIN 27.7 PG (27.0-31.0); MEAN CORPUSCULAR VOLUME 86.5 FL (78-98); MEAN PLATELET VOLUME 8.5 FL (7.4-10.4); MONOCYTES # (AUTO) 0.6 X10'3 (0-0.9); MONOCYTES % (AUTO) 4.1 % (2-12); NEUTROPHILS # (AUTO) 12.8 X10'3 (1.8-7.7); NEUTROPHILS % (AUTO) 92.1 % (42-75); PLATELET COUNT 346 X10'3 (140-440); RED CELL DISTRIBUTION WIDTH 18.7 % (11.5-14.5); WHITE BLOOD COUNT 13.8 X10'3 (4.5-11.0)
[2022-05-15 09:45] LABS: ALANINE AMINOTRANSFERASE 31 U/L (12-78); ALBUMIN/GLOBULIN RATIO 0.8 (1.1-1.5); ALKALINE PHOSPHATASE 364 IU/L (46-116); ANION GAP 13 (8-16); ASPARTATE AMINO TRANSFERASE 71 U/L (10-37); BILIRUBIN,TOTAL 0.4 MG/DL (0.1-1.0); BLOOD UREA NITROGEN 24 MG/DL (7-18); BUN/CREATININE RATIO 32.4 (6.6-38.0); CALCIUM 8.8 MG/DL (8.5-10.1); CHLORIDE 97 MMOL/L (99-107); CREATININE 0.74 MG/DL (0.40-0.90); GLUCOSE 165 MG/DL (70-104); SODIUM 134 MMOL/L (135-145); TOTAL CARBON DIOXIDE 23.6 MMOL/L (24-32); TOTAL PROTEIN 6.7 G/DL (6.4-8.2); eGFR 81 ML/MIN
[2022-05-15 10:00] VITALS: BP 146/64
--- NOTE | 2022-05-15 10:00 | NUR ---
Pt. transported to the MRI studies via w/c. Medicated for c/o nausea no emesis before the procedure- effective. Pt's son at the bedside. Addendum: 05/15/22 at 1333 by Danni Thurman RN Amended: Links added. Addendum: 05/15/22 at 1333 by Danni Thurman RN Wrong pt.
--- NOTE | 2022-05-15 12:20 | NUR ---
Problems reprioritized. Patient report given, questions answered & plan of care reviewed with Dilia ALLAN. Addendum: 05/15/22 at 1410 by Danni Thurman RN Amended: Links added.
[2022-05-15] MEDS ORDERED: NOR5T PO (12:36)
[2022-05-15] MEDS ORDERED: FURO20TA4 PO (12:36)
[2022-05-15] MEDS ORDERED: ALBU2.5V7 NEB (12:36)
[2022-05-15] MEDS ORDERED: POTA-207 PO (12:36)
--- NOTE | 2022-05-15 15:43 | NUR ---
Spoke with [facility]. Yarely from [facility] called to let us know that the patient is active with [facility] and wanted resumption of care orders. [facility] phone # [phone], fax # [phone]. Spoke with Alba in . She said she will take care of it.
--- NOTE | 2022-05-15 15:47 | NUR ---
Patient discharged at 1540 with instructions and verbalizing understanding of instructions in wheelchair accompanied by nursing staff. Family member was waiting for the patient downstairs to take her home via private vehicle. All lines and tubes have been removed including PIV with cannula intact. Medications have been escripted to preferred pharmacy, education has been provided and all questions have been answered. Patient will make follow up appointment with PCP. Patient is stable and appropriate for discharge.
== END 2022-05-15 15:40 | disposition home health service (06) | DRG 194 ==
LOC: ER 20:31 → ED HOLD 23:30 → EDBEDREQ 05-13 02:36 → ORTHO 4S 05-13 03:19
PROVIDERS: ADMIT Internal Medicine; ATTEND Family Medicine
PROC: BW251ZZ Computerized Tomography (CT Scan) of Chest, Abdomen and Pelvis using Low Osmolar Contrast (ICD-10-PCS; 2022-05-13)
PROC: B0201ZZ Computerized Tomography (CT Scan) of Brain using Low Osmolar Contrast (ICD-10-PCS; 2022-05-13)
PROC: 0W9G3ZZ Drainage of Peritoneal Cavity, Percutaneous Approach (ICD-10-PCS; principal; 2022-05-14)
DX: I11.0 Hypertensive heart disease with heart failure (principal); J96.00 Acute respiratory failure, unspecified whether with hypoxia or hypercapnia; R18.0 Malignant ascites; K72.10 Chronic hepatic failure without coma; C78.00 Secondary malignant neoplasm of unspecified lung; E87.1 Hypo-osmolality and hyponatremia; J44.1 Chronic obstructive pulmonary disease with (acute) exacerbation; C78.7 Secondary malignant neoplasm of liver and intrahepatic bile duct; C80.1 Malignant (primary) neoplasm, unspecified; I50.33 Acute on chronic diastolic (congestive) heart failure; Z20.822 Contact with and (suspected) exposure to COVID-19; M54.9 Dorsalgia, unspecified; B19.20 Unspecified viral hepatitis C without hepatic coma; F17.210 Nicotine dependence, cigarettes, uncomplicated; G89.29 Other chronic pain; I25.2 Old myocardial infarction; Z56.0 Unemployment, unspecified; Z88.0 Allergy status to penicillin; Z88.5 Allergy status to narcotic agent; Z79.899 Other long term (current) drug therapy
CPT/HCPCS: 36415; 49083; 70470; 71045; 71260; 74177; 80053; 81001; 82140; 83605; 83735; 83880; 84132; 84145; 85008; 85025; 87040; 87081; 87502; 87503; 94640; 94760; 96374; 96375; 99285; G0378; J0696; J1650; J1940; J2270; J2405; J2920; J2930; J3490; P9047; Q0169

== ENCOUNTER 2022-05-22 13:52 | Emergency (ER) | payer MEDICAID ==
[~2022-05-22] VITALS: Ht 160 cm; Wt 65.9 kg
[~2022-05-22 13:52] MED LIST changes: +ALBU2.5V7 NEB; -AMLO5TAB16 PO; -DOCU-345 PO; +FURO20TA4 PO; +NOR5T PO; +OXYC20TA40 PO; +POTA-207 PO; +PROM25TA14 PO
[2022-05-22] MEDS ORDERED: LIDOcaine 1% W/epiNEPHrine 1:100,000 20ml vial SQ ONE (15:20)
[2022-05-22 17:47] VITALS: BP 131/79
== END 2022-05-22 17:30 | disposition home or self-care (01) ==
LOC: ER 13:52
DX: R18.8 Other ascites (principal); I10 Essential (primary) hypertension; J44.9 Chronic obstructive pulmonary disease, unspecified; G89.29 Other chronic pain; Z88.0 Allergy status to penicillin; Z88.5 Allergy status to narcotic agent; Z56.0 Unemployment, unspecified
CPT/HCPCS: 49082; 71045; 99285; A6258

== ENCOUNTER 2022-05-31 11:40 | Inpatient (IN) | payer MEDICAID ==
[~2022-05-31] VITALS: Ht 160 cm; Wt 56.8 kg
[2022-05-31 12:22] LABS: BASOPHILS % (AUTO) 0 % (0-1); EOSINOPHILS # (AUTO) 0.1 X10'3 (0-0.9); EOSINOPHILS % (AUTO) 0.9 % (0-6); HEMATOCRIT 35.7 % (35.0-45.0); HEMOGLOBIN 11.5 g/dl (12.0-16.0); LYMPHOCYTES # (AUTO) 0.7 X10'3 (1.1-4.8); LYMPHOCYTES % (AUTO) 7.6 % (21-51); MEAN CORPUSCULAR HEMOGLOBIN 27.5 PG (27.0-31.0); MEAN CORPUSCULAR HGB CONC 32.2 g/dL (33.0-36.5); MEAN CORPUSCULAR VOLUME 85.5 FL (78-98); MONOCYTES # (AUTO) 0.7 X10'3 (0-0.9); MONOCYTES % (AUTO) 7.7 % (2-12); NEUTROPHILS % (AUTO) 83.8 % (42-75); PLATELET COUNT 430 X10'3 (140-440); RED BLOOD COUNT 4.17 X10'6 (4.20-5.60); RED CELL DISTRIBUTION WIDTH 19.2 % (11.5-14.5); WHITE BLOOD COUNT 9.5 X10'3 (4.5-11.0)
[2022-05-31 12:37] LABS: ALANINE AMINOTRANSFERASE 80 U/L (12-78); ALBUMIN 2.4 G/DL (3.4-5.0); ALBUMIN/GLOBULIN RATIO 0.5 (1.1-1.5); ALKALINE PHOSPHATASE 620 IU/L (46-116); ANION GAP 11 (8-16); ASPARTATE AMINO TRANSFERASE 94 U/L (10-37); BILIRUBIN,TOTAL 1.1 MG/DL (0.1-1.0); BLOOD UREA NITROGEN 16 MG/DL (7-18); BUN/CREATININE RATIO 23.2 (6.6-38.0); CALCIUM 8.4 MG/DL (8.5-10.1); CHLORIDE 101 MMOL/L (99-107); CREATININE 0.69 MG/DL (0.40-0.90); GLUCOSE 115 MG/DL (70-104); LIPASE 110 U/L (73-393); SODIUM 132 MMOL/L (135-145); TOTAL CARBON DIOXIDE 19.8 MMOL/L (24-32); TOTAL PROTEIN 6.9 G/DL (6.4-8.2); eGFR 88 ML/MIN
[2022-05-31 12:48] LABS: POTASSIUM 6.3 MMOL/L (3.5-5.1)
[2022-05-31] MEDS ORDERED: furosemide 10 MG/1 ML 10ml inj IV ONE (13:00)
[2022-05-31] MEDS ORDERED: morphine 4 MG/ML inj SYRINge IV ONE (14:50)
[2022-05-31] MEDS ORDERED: magnesium 4gm in 100ml NS 100 ML IV PRN (15:15)
[2022-05-31] MEDS ORDERED: potassium CL 10mEq/100ml bag 100 ML IV PRN (15:15)
[2022-05-31] MEDS ORDERED: acetaminophen 325mg tablet PO PRN (15:15)
[2022-05-31] MEDS ORDERED: magnesium Cl slow-release 64mg tablet PO PRN (15:15)
[2022-05-31] MEDS ORDERED: POTASSIUM BICARB 20meq eff tab 20 MEQ TABLET.EFF PO PRN ×2 (15:15)
[2022-05-31] MEDS ORDERED: magnesium 2GM in 50ml NS 50 ML IV PRN (15:15)
[2022-05-31] MEDS ORDERED: ondansetron/PF 4mg/2ml inj IV ONE (15:20)
[2022-05-31] MEDS ORDERED: sodium polystyrene sulfonate 15gm/60ml oral suspension PO ONE (15:25)
[2022-05-31] MEDS ORDERED: LORA-269 PO (16:10)
[2022-05-31] MEDS ORDERED: SERT-433 PO (16:10)
[2022-05-31] MEDS ORDERED: ALBU2.5V10 NEB (16:12)
[2022-05-31] MEDS ORDERED: FURO-150 PO (16:12)
[2022-05-31] MEDS ORDERED: POTA-82 PO (16:12)
[2022-05-31] MEDS ORDERED: AMLO5TAB PO (16:12)
[2022-05-31 16:22] LABS: MAGNESIUM 1.7 MG/DL (1.5-2.4); POTASSIUM 5.5 MMOL/L (3.5-5.1)
[2022-05-31 20:00] VITALS: BP 134/59
[2022-05-31] MEDS: K and/or MAG REPLACEMENT MC SCH (20:00)
--- NOTE | 2022-05-31 20:00 | NUR ---
Patient in room U 3012. I have received report from and had the opportunity to ask questions and assume patient care PT REQUESTING PAIN MEDICATION AND SOMETHING TO EAT UPON ARRIVAL. Addendum: 05/31/22 at 2014 by Nisreen Bazan RN Amended: Links added.
[2022-05-31] MEDS: morphine 4 MG/ML inj SYRINge IV PRN (20:18)
[2022-05-31 22:00] VITALS: BP 128/56
[2022-05-31] MEDS: HYDROmorphone inj. 0.5 MG/0.5 ML DISP.SYRIN IV PRN (22:16)
[2022-06-01] MEDS: HYDROmorphone inj. 0.5 MG/0.5 ML DISP.SYRIN IV PRN ×3 (03:48→15:17)
[2022-06-01 06:00] VITALS: BP 136/72
--- NOTE | 2022-06-01 06:04 | NUR ---
Problems reprioritized. Patient report given, questions answered & plan of care reviewed with LEXI ALLAN. Addendum: 06/01/22 at 0605 by Nisreen Bazan RN Amended: Links added.
--- NOTE | 2022-06-01 07:11 | NUR ---
Patient in room PCU 3012. I have received report from JERRELL CALLAWAY, and had the opportunity to ask questions and assume patient care.
[2022-06-01 07:23] LABS: BASOPHILS # (AUTO) 0.1 X10'3 (0-0.2); BASOPHILS % (AUTO) 0.9 % (0-1); EOSINOPHILS # (AUTO) 0.1 X10'3 (0-0.9); EOSINOPHILS % (AUTO) 1.4 % (0-6); HEMATOCRIT 32.6 % (35.0-45.0); HEMOGLOBIN 10.8 g/dl (12.0-16.0); LYMPHOCYTES # (AUTO) 0.9 X10'3 (1.1-4.8); LYMPHOCYTES % (AUTO) 10.7 % (21-51); MEAN CORPUSCULAR HEMOGLOBIN 28.1 PG (27.0-31.0); MEAN CORPUSCULAR HGB CONC 33.3 g/dL (33.0-36.5); MEAN CORPUSCULAR VOLUME 84.4 FL (78-98); MEAN PLATELET VOLUME 8.5 FL (7.4-10.4); MONOCYTES # (AUTO) 0.7 X10'3 (0-0.9); MONOCYTES % (AUTO) 7.5 % (2-12); NEUTROPHILS % (AUTO) 79.5 % (42-75); PLATELET COUNT 491 X10'3 (140-440); RED BLOOD COUNT 3.86 X10'6 (4.20-5.60); RED CELL DISTRIBUTION WIDTH 19.6 % (11.5-14.5); WHITE BLOOD COUNT 8.8 X10'3 (4.5-11.0)
[2022-06-01 07:58] LABS: ALBUMIN 2.4 G/DL (3.4-5.0); ANION GAP 11 (8-16); BLOOD UREA NITROGEN 23 MG/DL (7-18); BUN/CREATININE RATIO 24.2 (6.6-38.0); CALCIUM 8.7 MG/DL (8.5-10.1); CHLORIDE 98 MMOL/L (99-107); CREATININE 0.95 MG/DL (0.40-0.90); GLUCOSE 77 MG/DL (70-104); MAGNESIUM 1.9 MG/DL (1.5-2.4); POTASSIUM 5.3 MMOL/L (3.5-5.1); SODIUM 130 MMOL/L (135-145); TOTAL CARBON DIOXIDE 20.7 MMOL/L (24-32); eGFR 61 ML/MIN
[2022-06-01] MEDS: K and/or MAG REPLACEMENT MC SCH ×2 (08:00→20:00)
[2022-06-01 09:05] LABS: ANISOCYTOSIS 2+; HYPOCHROMASIA 1+; PLATELET ESTIMATE INCREASED; POLYCHROMASIA 1+
[2022-06-01 10:47] VITALS: BP 133/62
[2022-06-01] MEDS ORDERED: ipratropium 0.5 MG/2.5ML nebule ONE (11:01)
[2022-06-01] MEDS ORDERED: ipratropium/albuterol 3ml nebule NEB PRN (11:25)
[2022-06-01] MEDS: levoFLOXACIN-Levaquin 500mg/D5 100 ML IV SCH (12:36)
--- NOTE | 2022-06-01 13:16 | NUR ---
Problems reprioritized. Patient report given, questions answered & plan of care reviewed with JERRELL JORDAN.
--- NOTE | 2022-06-01 13:16 | NUR ---
Patient in room PCU 3012. I have received report from LEXI ALLAN and had the opportunity to ask questions and assume patient care.
[2022-06-01] MEDS: ipratropium/albuterol 3ml nebule NEB SCH ×3 (14:06→22:30)
[2022-06-01 16:09] VITALS: BP 113/54
[2022-06-01 18:00] VITALS: BP 130/68
--- NOTE | 2022-06-01 18:19 | NUR ---
Problems reprioritized. Patient report given, questions answered & plan of care reviewed with SILVINA THAKUR.
[2022-06-01] MEDS: morphine 4 MG/ML inj SYRINge IV PRN (19:01)
[2022-06-01] MEDS: HYDROmorphone 1 mg/ml syringe IV PRN (21:27)
[2022-06-01 22:00] VITALS: BP 123/51
[2022-06-02] MEDS: morphine 4 MG/ML inj SYRINge IV PRN ×4 (01:08→19:37)
[2022-06-02] MEDS: ipratropium/albuterol 3ml nebule NEB SCH ×6 (02:28→23:00)
[2022-06-02 03:00] VITALS: BP 119/61
[2022-06-02 06:00] VITALS: BP 125/69
[2022-06-02 06:40] LABS: BASOPHILS # (AUTO) 0.1 X10'3 (0-0.2); BASOPHILS % (AUTO) 1.2 % (0-1); EOSINOPHILS # (AUTO) 0.2 X10'3 (0-0.9); HEMATOCRIT 33.8 % (35.0-45.0); HEMOGLOBIN 10.9 g/dl (12.0-16.0); LYMPHOCYTES # (AUTO) 0.9 X10'3 (1.1-4.8); LYMPHOCYTES % (AUTO) 11.8 % (21-51); MEAN CORPUSCULAR HEMOGLOBIN 27.5 PG (27.0-31.0); MEAN CORPUSCULAR HGB CONC 32.4 g/dL (33.0-36.5); MEAN PLATELET VOLUME 8.1 FL (7.4-10.4); MONOCYTES # (AUTO) 0.7 X10'3 (0-0.9); MONOCYTES % (AUTO) 9.1 % (2-12); NEUTROPHILS # (AUTO) 5.9 X10'3 (1.8-7.7); NEUTROPHILS % (AUTO) 75.9 % (42-75); PLATELET COUNT 435 X10'3 (140-440); RED BLOOD COUNT 3.97 X10'6 (4.20-5.60); RED CELL DISTRIBUTION WIDTH 19.4 % (11.5-14.5); WHITE BLOOD COUNT 7.8 X10'3 (4.5-11.0)
[2022-06-02 06:53] LABS: ALBUMIN 2.3 G/DL (3.4-5.0); ANION GAP 11 (8-16); BLOOD UREA NITROGEN 20 MG/DL (7-18); BUN/CREATININE RATIO 24.7 (6.6-38.0); CALCIUM 8.6 MG/DL (8.5-10.1); CHLORIDE 101 MMOL/L (99-107); CREATININE 0.81 MG/DL (0.40-0.90); GLUCOSE 121 MG/DL (70-104); MAGNESIUM 1.6 MG/DL (1.5-2.4); POTASSIUM 4.8 MMOL/L (3.5-5.1); SODIUM 133 MMOL/L (135-145); TOTAL CARBON DIOXIDE 21.5 MMOL/L (24-32); eGFR 73 ML/MIN
[2022-06-02] MEDS: levoFLOXACIN-Levaquin 500mg/D5 100 ML IV SCH (07:10)
[2022-06-02] MEDS: K and/or MAG REPLACEMENT MC SCH ×2 (07:17→19:29)
[2022-06-02] MEDS: HYDROmorphone 1 mg/ml syringe IV PRN ×3 (09:51→21:16)
[2022-06-02 11:00] VITALS: BP 132/72
[2022-06-02] MEDS ORDERED: albuterol 2.5 MG/3 ML nebule NEB PRN (11:55)
[2022-06-02] MEDS ORDERED: OXYcodone immediate-release 10MG tablet PO PRN (11:55)
[2022-06-02 15:00] VITALS: BP 128/62
[2022-06-02] MEDS: ondansetron/PF 4mg/2ml inj IV PRN ×2 (15:09→21:16)
--- NOTE | 2022-06-02 15:51 | NUR ---
PAGER ID: [phone] MESSAGE: [email or web address] ON [phone], I AM PLACING ORDER FOR TYLENOL FOR HEADACHE ON 3012C IF YOU ARE OK WITH THAT? THX
[2022-06-02] MEDS ORDERED: acetaminophen 325mg tablet PO PRN (15:55)
[2022-06-02 18:00] VITALS: BP 153/72
[2022-06-02 22:00] VITALS: BP 127/69
[2022-06-02] MEDS: LORazepam 1 MG tablet PO PRN (22:17)
[2022-06-03] VITALS (8 sets, daily range): BP systolic 104–153; BP diastolic 50–74
[2022-06-03] MEDS: morphine 4 MG/ML inj SYRINge IV PRN ×3 (02:48→23:32)
[2022-06-03] MEDS: ipratropium/albuterol 3ml nebule NEB SCH ×6 (03:00→22:36)
[2022-06-03] MEDS: HYDROmorphone 1 mg/ml syringe IV PRN ×5 (04:34→20:42)
[2022-06-03 06:22] LABS: BASOPHILS # (AUTO) 0.1 X10'3 (0-0.2); BASOPHILS % (AUTO) 1.3 % (0-1); EOSINOPHILS # (AUTO) 0.1 X10'3 (0-0.9); HEMOGLOBIN 11.1 g/dl (12.0-16.0); LYMPHOCYTES # (AUTO) 0.6 X10'3 (1.1-4.8); LYMPHOCYTES % (AUTO) 7.9 % (21-51); MEAN CORPUSCULAR HEMOGLOBIN 28.6 PG (27.0-31.0); MEAN CORPUSCULAR HGB CONC 33.8 g/dL (33.0-36.5); MEAN CORPUSCULAR VOLUME 84.5 FL (78-98); MEAN PLATELET VOLUME 7.8 FL (7.4-10.4); MONOCYTES # (AUTO) 0.6 X10'3 (0-0.9); MONOCYTES % (AUTO) 7.8 % (2-12); NEUTROPHILS # (AUTO) 5.8 X10'3 (1.8-7.7); PLATELET COUNT 406 X10'3 (140-440); RED CELL DISTRIBUTION WIDTH 18.7 % (11.5-14.5); WHITE BLOOD COUNT 7.2 X10'3 (4.5-11.0)
[2022-06-03 06:30] LABS: ALBUMIN 2.3 G/DL (3.4-5.0); ANION GAP 9 (8-16); BLOOD UREA NITROGEN 17 MG/DL (7-18); BUN/CREATININE RATIO 19.5 (6.6-38.0); CALCIUM 8.4 MG/DL (8.5-10.1); CHLORIDE 97 MMOL/L (99-107); CREATININE 0.87 MG/DL (0.40-0.90); GLUCOSE 134 MG/DL (70-104); MAGNESIUM 1.6 MG/DL (1.5-2.4); POTASSIUM 5.4 MMOL/L (3.5-5.1); SODIUM 128 MMOL/L (135-145); TOTAL CARBON DIOXIDE 22.2 MMOL/L (24-32); eGFR 67 ML/MIN
--- NOTE | 2022-06-03 07:04 | NUR ---
Patient in room PCU 3012. I have received report from JERRELL Brownlee and had the opportunity to ask questions and assume patient care.
[2022-06-03] MEDS: K and/or MAG REPLACEMENT MC SCH ×2 (08:00→19:33)
[2022-06-03] MEDS: potassium chloride 10mEq ER tablet PO SCH (08:00)
[2022-06-03] MEDS: ondansetron/PF 4mg/2ml inj IV PRN ×2 (08:06→19:48)
[2022-06-03] MEDS: levoFLOXACIN-Levaquin 500mg/D5 100 ML IV SCH (08:09)
[2022-06-03] MEDS: amLODIPine 5mg tablet PO SCH (08:14)
[2022-06-03] MEDS: furosemide 20MG tablet PO SCH (08:14)
[2022-06-03] MEDS: sertraline 50mg tablet PO SCH (08:14)
[2022-06-03] MEDS: metoprolol succinate 25mg (24-HOUR) SR. Tablet PO SCH (08:15)
[2022-06-03] MEDS ORDERED: oxyCODONE IR 5mg (immed. release) tablet PO PRN (10:46)
--- NOTE | 2022-06-03 11:39 | NUR ---
Malnutrition consult: Pt admitted w/ lung cancer, hyperkalemia, COPD, ascites and hx of liver cancer and CHF per EMR. Pt unsure of wt loss per EMR. Current wt not scaled though wt on prior admit last month showed 66kg. No signs of muscle or fat wasting observed. Pt noted w/ BLE 2+ edema though possibly r/t CHF and liver issues. Pt is also noted to require paracentesis every 2 weeks; could affect wt status. Currently on clear liquid diet w/ 100% intake of meals. At this time pt does not meet minimum criteria for malnutrition. Will continue to monitor. Addendum: 06/03/22 at [address] Amended: Links added.
--- NOTE | 2022-06-03 14:45 | NUR ---
Paracentesis completed. Per Angio RN 6000ml was removed.
[2022-06-03] MEDS ORDERED: albumin (human) 25% 100 ML IV solution IV ONE (14:55)
--- NOTE | 2022-06-03 18:14 | NUR ---
Problems reprioritized. Patient report given, questions answered & plan of care reviewed with JERRELL Brownlee.
[2022-06-03] MEDS: proMETHazine 25mg tablet PO PRN (20:42)
[2022-06-04] MEDS: LORazepam 1 MG tablet PO PRN (01:04)
[2022-06-04 02:00] VITALS: BP 95/51
[2022-06-04] MEDS: ipratropium/albuterol 3ml nebule NEB SCH ×3 (03:00→11:00)
[2022-06-04 06:00] VITALS: BP 113/62
--- NOTE | 2022-06-04 06:42 | NUR ---
Patient in room PCU 3012. I have received report from JERRELL Brownlee and had the opportunity to ask questions and assume patient care.
[2022-06-04 06:47] LABS: BASOPHILS # (AUTO) 0.1 X10'3 (0-0.2); BASOPHILS % (AUTO) 0.8 % (0-1); EOSINOPHILS # (AUTO) 0.1 X10'3 (0-0.9); EOSINOPHILS % (AUTO) 1.3 % (0-6); HEMATOCRIT 33.7 % (35.0-45.0); LYMPHOCYTES # (AUTO) 0.8 X10'3 (1.1-4.8); LYMPHOCYTES % (AUTO) 10.6 % (21-51); MEAN CORPUSCULAR HEMOGLOBIN 27.3 PG (27.0-31.0); MEAN CORPUSCULAR HGB CONC 32.5 g/dL (33.0-36.5); MEAN CORPUSCULAR VOLUME 84.1 FL (78-98); MEAN PLATELET VOLUME 8.1 FL (7.4-10.4); MONOCYTES # (AUTO) 0.8 X10'3 (0-0.9); MONOCYTES % (AUTO) 10.4 % (2-12); NEUTROPHILS # (AUTO) 5.7 X10'3 (1.8-7.7); NEUTROPHILS % (AUTO) 76.9 % (42-75); PLATELET COUNT 345 X10'3 (140-440); RED BLOOD COUNT 4.01 X10'6 (4.20-5.60); RED CELL DISTRIBUTION WIDTH 18.7 % (11.5-14.5); WHITE BLOOD COUNT 7.5 X10'3 (4.5-11.0)
[2022-06-04 07:00] LABS: ALBUMIN 2.5 G/DL (3.4-5.0); ANION GAP 10 (8-16); BLOOD UREA NITROGEN 16 MG/DL (7-18); BUN/CREATININE RATIO 17.2 (6.6-38.0); CALCIUM 8.7 MG/DL (8.5-10.1); CHLORIDE 98 MMOL/L (99-107); CREATININE 0.93 MG/DL (0.40-0.90); GLUCOSE 98 MG/DL (70-104); MAGNESIUM 1.6 MG/DL (1.5-2.4); POTASSIUM 5.4 MMOL/L (3.5-5.1); SODIUM 129 MMOL/L (135-145); TOTAL CARBON DIOXIDE 20.9 MMOL/L (24-32); eGFR 62 ML/MIN
[2022-06-04] MEDS: HYDROmorphone 1 mg/ml syringe IV PRN (07:41)
[2022-06-04] MEDS: sertraline 50mg tablet PO SCH (07:46)
[2022-06-04] MEDS: amLODIPine 5mg tablet PO SCH (07:46)
[2022-06-04] MEDS: metoprolol succinate 25mg (24-HOUR) SR. Tablet PO SCH (07:46)
[2022-06-04] MEDS: levoFLOXACIN-Levaquin 500mg/D5 100 ML IV SCH (07:46)
[2022-06-04] MEDS: furosemide 20MG tablet PO SCH (07:46)
[2022-06-04] MEDS: ondansetron/PF 4mg/2ml inj IV PRN (07:49)
[2022-06-04] MEDS: potassium chloride 10mEq ER tablet PO SCH (08:00)
[2022-06-04] MEDS: K and/or MAG REPLACEMENT MC SCH (08:00)
[2022-06-04] MEDS: proMETHazine 25mg tablet PO PRN (10:36)
[2022-06-04 11:00] VITALS: BP 105/52
--- NOTE | 2022-06-04 13:25 | NUR ---
Pt discharged to home at 1300, with all belongings, in private vehicle accompanied by son in law. Discharge instructions and medications reviewed. No new prescriptions ordered. Pt instructed to follow up with PCP in 1 week, and Oncologist as scheduled. Pt instructed to return to ED for any new or worsening symptoms. Pt states understanding and willingness to comply with all discharge instructions. IV dc'd, cannula intact. Pt escorted to front lobby via wheelchair by PCT.
== END 2022-06-04 13:02 | disposition home health service (06) | DRG 281 ==
LOC: ER 11:40 → ED HOLD 15:21 → EDBEDREQ 19:22 → PCU 3S 19:47
PROVIDERS: ADMIT Internal Medicine; ATTEND Internal Medicine
PROC: 0W9G3ZZ Drainage of Peritoneal Cavity, Percutaneous Approach (ICD-10-PCS; principal; 2022-06-03)
DX: C22.8 Malignant neoplasm of liver, primary, unspecified as to type (principal); R18.0 Malignant ascites; J18.9 Pneumonia, unspecified organism; E44.0 Moderate protein-calorie malnutrition; I11.0 Hypertensive heart disease with heart failure; I50.9 Heart failure, unspecified; C78.00 Secondary malignant neoplasm of unspecified lung; J44.0 Chronic obstructive pulmonary disease with (acute) lower respiratory infection; E87.1 Hypo-osmolality and hyponatremia; J44.1 Chronic obstructive pulmonary disease with (acute) exacerbation; M79.89 Other specified soft tissue disorders; B19.20 Unspecified viral hepatitis C without hepatic coma; G89.29 Other chronic pain; E87.5 Hyperkalemia; I25.2 Old myocardial infarction; Z68.22 Body mass index [BMI] 22.0-22.9, adult; Z56.0 Unemployment, unspecified; Z88.0 Allergy status to penicillin; Z88.5 Allergy status to narcotic agent
CPT/HCPCS: 36415; 49083; 71045; 80048; 80053; 83690; 83735; 84132; 85008; 85025; 85610; 93005; 93971; 94640; 94760; 96374; 97116; 97161; 97530; 99285; G0378; J1170; J1940; J1956; J2270; J2405; P9047; Q0169

== ENCOUNTER 2022-06-13 13:00 | Day surgery (SDC) | payer MEDICAID ==
[~2022-06-13] VITALS: Ht 160 cm; Wt 65.9 kg
[2022-06-13] VITALS (8 sets, daily range): BP systolic 98–119; BP diastolic 56–67
[~2022-06-13 13:00] MED LIST changes: +ALBU2.5V10 NEB; -ALBU2.5V7 NEB; +AMLO5TAB PO; +FURO-150 PO; -FURO20TA4 PO; +LORA-269 PO; -NOR5T PO; -POTA-207 PO; +POTA-82 PO; +SERT-433 PO
[2022-06-13] MEDS ORDERED: LIDOcaine 1%/PF 5ML 10 MG/ML VIAL IJ ONE (13:25)
[2022-06-13] MEDS ORDERED: albumin 25% 100mL bottle x 1 IV PRN (13:25)
[2022-06-13] MEDS ORDERED: FURO20TA4 PO (13:33)
[2022-06-13] MEDS ORDERED: AMLO5TAB16 PO (13:33)
== END 2022-06-13 15:30 | disposition home or self-care (01) ==
LOC: SSTAY O 13:00
PROVIDERS: ATTEND Preventive Medicine Aerospace Medicine
DX: R18.8 Other ascites (principal); K72.90 Hepatic failure, unspecified without coma; Z88.0 Allergy status to penicillin; Z88.6 Allergy status to analgesic agent; Z88.8 Allergy status to other drugs, medicaments and biological substances; Z79.899 Other long term (current) drug therapy; Z98.890 Other specified postprocedural states
CPT/HCPCS: 49083; J3490; P9047; A6258; A6402

== ENCOUNTER 2022-06-29 04:01 | Inpatient (IN) | payer MEDICAID ==
[~2022-06-29] VITALS: Ht 157.5 cm; Wt 70.0 kg
[~2022-06-29 04:01] MED LIST changes: -AMLO5TAB PO; +AMLO5TAB16 PO; -FURO-150 PO; +FURO20TA4 PO; -SERT-433 PO
[2022-06-29] MEDS ORDERED: albuterol 2.5 MG/3 ML nebule CONTNEB PRN (04:10)
[2022-06-29] MEDS ORDERED: methylPREDNISolone sod succ 125mg/2ml vial IV ONE (04:10)
--- NOTE | 2022-06-29 04:20 | NUR ---
BIB EMS ON BIPAP FOR SOB X2 HOURS. PT C/O ABDOMINAL SWELLING THAT HAS BEEN THERE FOR A WHILE. PT HASN'T HAD FLUID REMOVED FOR 5-6 MONTHS. PT SATS WERE LOW 80'S ON ROOM AIR WHEN EMS ARRIVED.
[2022-06-29 04:26] LABS: BASOPHILS % (AUTO) 0.2 % (0-1); EOSINOPHILS % (AUTO) 0 % (0-6); HEMATOCRIT 36.7 % (35.0-45.0); HEMOGLOBIN 11.4 g/dl (12.0-16.0); LYMPHOCYTES # (AUTO) 0.7 X10'3 (1.1-4.8); LYMPHOCYTES % (AUTO) 3.8 % (21-51); MEAN CORPUSCULAR HEMOGLOBIN 26.4 PG (27.0-31.0); MEAN CORPUSCULAR VOLUME 85.1 FL (78-98); MEAN PLATELET VOLUME 7.7 FL (7.4-10.4); MONOCYTES # (AUTO) 0.9 X10'3 (0-0.9); MONOCYTES % (AUTO) 5.1 % (2-12); NEUTROPHILS # (AUTO) 16.8 X10'3 (1.8-7.7); NEUTROPHILS % (AUTO) 90.9 % (42-75); PLATELET COUNT 470 X10'3 (140-440); RED BLOOD COUNT 4.32 X10'6 (4.20-5.60); RED CELL DISTRIBUTION WIDTH 20.6 % (11.5-14.5); WHITE BLOOD COUNT 18.5 X10'3 (4.5-11.0)
[2022-06-29 04:30] LABS: ABG BASE EXCESS -14.6 mmol/L (-2.0-2.0); ABG OXYGEN SATURATION 99.6 % (94-97); ABG PCO2 (T) 30.7 mmHg (32.0-45.0); ABG PO2 (T) 334.3 mmHg (75.0-100.0); ALLEN'S TEST POSITIVE; FCOHb 0.3 % (0.0-3.9); FMetHb 0.3 % (0.0-1.5); PATIENT TEMPERATURE 36.7; RESPIRATORY RATE 12 b/min; TOTAL HEMOGLOBIN 12.6 G/dl (12.0-16.0)
--- NOTE | 2022-06-29 04:33 | NUR ---
BIPAP TURNED DOWN TO 40% BY RESPIRATORY
[2022-06-29 04:35] LABS: APTT 29 SECONDS (22-32)
[2022-06-29] MEDS ORDERED: SODI10PO (04:41)
[2022-06-29] MEDS ORDERED: furosemide 40mg/4ml inj IV STA (04:41)
[2022-06-29 04:46] LABS: ALANINE AMINOTRANSFERASE 63 U/L (12-78); ALBUMIN 3.3 G/DL (3.4-5.0); ALBUMIN/GLOBULIN RATIO 0.8 (1.1-1.5); ALKALINE PHOSPHATASE 365 IU/L (46-116); ANION GAP 21 (8-16); ASPARTATE AMINO TRANSFERASE 83 U/L (10-37); BILIRUBIN,TOTAL 0.7 MG/DL (0.1-1.0); BLOOD UREA NITROGEN 102 MG/DL (7-18); BUN/CREATININE RATIO 25.2 (6.6-38.0); CALCIUM 8.8 MG/DL (8.5-10.1); CHLORIDE 99 MMOL/L (99-107); CREATININE 4.05 MG/DL (0.40-0.90); GLUCOSE 139 MG/DL (70-104); SODIUM 133 MMOL/L (135-145); TOTAL PROTEIN 7.6 G/DL (6.4-8.2); eGFR 11 ML/MIN
[2022-06-29 04:59] LABS: POTASSIUM 6.8 MMOL/L (3.5-5.1); TOTAL CARBON DIOXIDE 13.1 MMOL/L (24-32)
[2022-06-29 05:06] LABS: ANISOCYTOSIS 3+; ELLIPTOCYTES FEW; PLATELET ESTIMATE INCREASED; POLYCHROMASIA FEW; TARGET CELLS 1+
[2022-06-29] MEDS ORDERED: LORazepam 2 mg/ml vial IV ONE ×2 (05:45→05:55)
[2022-06-29 05:52] LABS: ABG HCO3 11.7 mmol/L (22.0-26.0); ABG OXYGEN SATURATION 94.9 % (94-97); ABG PCO2 (T) 30.2 mmHg (32.0-45.0); ABG PO2 (T) 85.5 mmHg (75.0-100.0); ALLEN'S TEST POSITIVE; FCOHb 0.3 % (0.0-3.9); FMetHb 0.3 % (0.0-1.5); FO2Hb 94.3 % (94-97); PATIENT TEMPERATURE 36.7; RESPIRATORY RATE 10 b/min; TOTAL HEMOGLOBIN 12.6 G/dl (12.0-16.0)
--- NOTE | 2022-06-29 06:23 | NUR ---
PT BACK FROM CT. PT TOLERATED LAYING FLAT.
[2022-06-29] MEDS ORDERED: cefepime 1GM/NS ADD-VANTAGE 100 ML IV ONE (07:05)
[2022-06-29] MEDS ORDERED: vancomycin/NS 1 GM ADD-VANTAGE 250 ML IV ONE (07:05)
[2022-06-29] MEDS ORDERED: LIDOcaine 2% 10ml TOPICAL JELLY (Urojet) TP ONE (07:10)
[2022-06-29] MEDS ORDERED: sodium bicarbonate (8.4%) 1 mEq/ml syringe IV ONE (07:10)
[2022-06-29] MEDS ORDERED: ringers solution, lactated 1000ml IV soln IV ONE (07:15)
--- NOTE | 2022-06-29 07:59 | NUR ---
16fr cast placed at this time
--- NOTE | 2022-06-29 08:05 | NUR ---
spoke with son at this time, advised they are looking for a glue reel operator and are planning on coming back within a few hours. advised that they would like to speak with physician over the phone regarding care status of patient
[2022-06-29 08:58] LABS: ALANINE AMINOTRANSFERASE 52 U/L (12-78); ALBUMIN 3.1 G/DL (3.4-5.0); ALBUMIN/GLOBULIN RATIO 0.8 (1.1-1.5); ALKALINE PHOSPHATASE 323 IU/L (46-116); ANION GAP 17 (8-16); ASPARTATE AMINO TRANSFERASE 74 U/L (10-37); BILIRUBIN,TOTAL 0.8 MG/DL (0.1-1.0); BLOOD UREA NITROGEN 101 MG/DL (7-18); BUN/CREATININE RATIO 25.5 (6.6-38.0); CALCIUM 8.6 MG/DL (8.5-10.1); CHLORIDE 102 MMOL/L (99-107); CREATININE 3.96 MG/DL (0.40-0.90); GLUCOSE 142 MG/DL (70-104); SODIUM 136 MMOL/L (135-145); TOTAL CARBON DIOXIDE 17.4 MMOL/L (24-32); eGFR 12 ML/MIN
[2022-06-29 08:59] LABS: POTASSIUM 6.9 MMOL/L (3.5-5.1)
--- NOTE | 2022-06-29 08:59 | NUR ---
K 6.9, ER aware
--- NOTE | 2022-06-29 09:06 | NUR ---
family at bedside
[2022-06-29 09:10] LABS: CLARITY,URINE CLEAR (Clear); GLUCOSE, URINE NEGATIVE (Neg); KETONES,URINE NEGATIVE (Neg); LEUKOCYTE ESTERASE ,URINE NEGATIVE (Neg); NITRITES, URINE NEGATIVE (Neg); OCCULT BLOOD,URINE TRACE-INTACT (Neg); PH,URINE 5.5 (4.8-8.0); PROTEIN,URINE TRACE mg/dl (Neg); UROBILINOGEN,URINE 0.2 E.U/dL (0.2-1.0)
[2022-06-29 09:11] LABS: COLOR,URINE DARK YELLOW (Yellow); UA COLLECTION TYPE FOLEY CATH
[2022-06-29 09:17] LABS: BACTERIA,URINE FEW /HPF (Neg); MUCUS STRANDS NONE SEEN /LPF (Neg); RBC,URINE 0-2 /HPF (0-2); SQUAMOUS EPITHELIAL CELL,UR FEW /LPF (FEW); WBC,URINE 0-4 /HPF (0-4)
--- NOTE | 2022-06-29 09:40 | NUR ---
family at bedside, per son agreed on comfort care. ER MD aware
[2022-06-29] MEDS ORDERED: LORazepam 2 mg/ml vial IV PRN (10:15)
[2022-06-29] MEDS ORDERED: morphine 10mg/0.5ml (conc. morphine) oral syringe PO PRN (10:15)
--- NOTE | 2022-06-29 10:40 | NUR ---
patient removed off of bipap, in some discomfort at this time. morphine retrieved and administered
[2022-06-29] MEDS: morphine 10mg/ml inj. IV PRN ×2 (10:45→12:03)
--- NOTE | 2022-06-29 13:00 | NUR ---
report given to RN at this time for transfer [id number] u
[2022-06-29] MEDS ORDERED: hyoscyamine 0.125mg TAB.SUBL SL PRN (13:05)
--- NOTE | 2022-06-29 13:09 | NUR ---
PT WITH INCREASED SECRETIONS IN THROAT, CALL TO DR THAKKAR, VERBAL ORDER FOR LEVSIN SL PLACED. CALL TO RECIEVING RN INFORMING HER OF NEW MED AND PTS STATUS AND THAT MED IS NOT STOCKED HERE IN ER. SHE STATES SHE WILL CHECK THEIR ONMI IF NOT THERE SHE WILL CALL PHARM.
[2022-06-29 13:24] VITALS: BP 120/66
--- NOTE | 2022-06-29 13:38 | NUR ---
Patient has family friends at bedside who came to the nurses station stating that the patient is probably gone. I checked the patient in her room and found her not breathing. Myself, Margaret ALLAN and the charge nurse Alta were at bedside. Addendum: 06/29/22 at 1353 by Trina Yu RN Addendum to the above note: the family friend told me that she called the daughter about patient has passed
--- NOTE | 2022-06-29 13:42 | NUR ---
I SENT A PAGE TO HOSPITALIST LETTING THEM KNOW THAT PT HAD PASSED
--- NOTE | 2022-06-29 13:47 | NUR ---
AT 1340 I NOTIFIED THE ORGAN DONOR NETWORK AND TALKED TO NOA TONEY AND RELEASED THE BODY, REFERENCE NUMBER IS [id number]
--- NOTE | 2022-06-29 13:47 | NUR ---
RN IS TO DOCUMENT YES TO ALL APPLICABLE AREAS Pronouncement of : 1. Time Physician Notified:13:39 - paged by charge nurse Alta 2. Date of : 06/29/2022 3. Time of : 13:38 4. DNR/Withdraw life support documented:Y 5. Monitor strip has been placed on chart: y 6. Assessment process is of one-minute duration and includes following criteria: a) Patient is unresponsive to all stimuli: y b) Pupils fixed and non-reactive: y c) Auscultation of precordium reveals absence of heart tones: y d) Auscultation of lungs reveals absence of breath sounds: y e) Absence of blood pressure / all vital signs: y f) QRS complexes are not present on monitor / EKG strip:y g) Pacer spikes without capture: 4. Comments:
--- NOTE | 2022-06-29 13:53 | NUR ---
Just spoke to the daughter Vickie over the phone. I asked her if she can come to the hospital as we need to figure out the mortuary for the body. She said she will come to visit her mom and that she would just need to work on someone to baby sit her children.
--- NOTE | 2022-06-29 14:07 | NUR ---
Patient's best friend Enedelia Sharma approached me at the nurses station stating that Vickie won't be able to come to the hospital. I told Ramanae that we need to find out which mortuary Vickie wants for the patient's body to go to. I gave the list of mortuary to Enedelia. I asked her to let me know where Vickie wants in regards to mortuary. She said she would.
--- NOTE | 2022-06-29 14:10 | NUR ---
Noted pt has been made DNR w/ comfort care currently NPO per EMR. Will continue to follow. Addendum: 06/29/22 at [address] Amended: Links added.
--- NOTE | 2022-06-29 16:13 | NUR ---
called nursing ofelia about pt, nurse ofelia told me to call [facility] at [phone], dispatch had me leave my information with them so the corner can call me back
--- NOTE | 2022-06-29 16:31 | NUR ---
keegan called back, her name Nerissa Marrero released the body to go to [facility] in [place]
--- NOTE | 2022-06-29 16:43 | NUR ---
called [facility] per corner and nursing sup to pear picker body, stephanie from [facility] took my information and told me that she is going to notify her staff of assuming care
--- NOTE | 2022-06-29 16:49 | NUR ---
As of this time, I have not received any phone call yet from the daughter Vickie or the patient's best friend about the Mortuary choice. Charge nurse Alta king.
--- NOTE | 2022-06-29 16:59 | NUR ---
Spoke to the son-in law Khanh over the phone as the patient's daughter Vickie was sleeping when I called. I notified Khanh that the patient's body was assigned to [facility] in [place]. He asked me if the mortuary can still be changed, I directed him to call the hospital airline radio operator to be transfer to the household refrigerator mechanic. I also gave Khanh the phone number to [facility] in [place]. Addendum: 06/29/22 at 1719 by Trina Yu RN Addendum to the above note: I did informed Khanh that I attempted to ask Vickie and the patient's friend that was here to let us know about the mortuary of choice but has not got any response. I also let him know that the body still in the hospital at the time I was talking to him on the phone.
--- NOTE | 2022-06-29 19:00 | NUR ---
Patient in room ORTHO 4014. I have received report from Trina ALLAN and had the opportunity to ask questions and assume patient care.
--- NOTE | 2022-06-29 19:17 | NUR ---
Just called [facility] again. Got answering service who will relay the message that we are awaiting parts picker of and would appreciate an ETA.
--- NOTE | 2022-06-29 20:00 | NUR ---
Patient has just been poultry [employer] by [employer] and release paperwork signed and copied.
== END 2022-06-29 13:38 | DRG 133 ==
LOC: ER 04:02 → ED HOLD 10:17 → EDBEDREQ 12:35 → ORTHO 4S 13:15
PROVIDERS: ADMIT Family Medicine; ATTEND Family Medicine
PROC: 5A09357 Assistance with Respiratory Ventilation, Less than 24 Consecutive Hours, Continuous Positive Airway Pressure (ICD-10-PCS; principal; 2022-06-29)
DX: J96.01 Acute respiratory failure with hypoxia (principal); G93.41 Metabolic encephalopathy; N17.9 Acute kidney failure, unspecified; E87.2 Acidosis; K72.10 Chronic hepatic failure without coma; I13.0 Hypertensive heart and chronic kidney disease with heart failure and stage 1 through stage 4 chronic kidney disease, or unspecified chronic kidney disease; I50.9 Heart failure, unspecified; C78.7 Secondary malignant neoplasm of liver and intrahepatic bile duct; R18.8 Other ascites; R64 Cachexia; Z66 Do not resuscitate; N18.9 Chronic kidney disease, unspecified; B19.20 Unspecified viral hepatitis C without hepatic coma; F17.210 Nicotine dependence, cigarettes, uncomplicated; C34.90 Malignant neoplasm of unspecified part of unspecified bronchus or lung; Z20.822 Contact with and (suspected) exposure to COVID-19; G89.29 Other chronic pain; J44.9 Chronic obstructive pulmonary disease, unspecified; D72.829 Elevated white blood cell count, unspecified; E87.5 Hyperkalemia; I25.2 Old myocardial infarction; Z51.5 Encounter for palliative care; Z56.0 Unemployment, unspecified; Z88.0 Allergy status to penicillin; Z88.5 Allergy status to narcotic agent; Z68.28 Body mass index [BMI] 28.0-28.9, adult
CPT/HCPCS: 36415; 36600; 70450; 71045; 71250; 74176; 80053; 81001; 82803; 83605; 83880; 84484; 85008; 85018; 85025; 85610; 85730; 87040; 87502; 87503; 87635; 93005; 94660; 94760; 96374; 96375; 99291; 99292; C9803; G0378; J0692; J1940; J2060; J2274; J2930; J3370; J3490; J7120